=== PATIENT | female | born 1995 | race African-American/Black ===

== ENCOUNTER 2017-05-22 08:45 | Emergency (ER) | payer SELFPAY ==
[2017-05-22 09:43] LABS: Bilirubin Negative (Negative); Blood, Urine Negative (Negative); Glucose, Urine (Dipstick) Negative (Negative); Ketone, Urine Negative (Negative); Nitrite Negative (Negative); Protein, Urine (Dipstick) Negative (Neg-Trace); Urobilinogen 0.2 mg/dL (0.2-1.0)
[2017-05-22 09:53] LABS: #Eosinphils 0.1 thou/uL (0.0-0.7); #Lymphocytes 1.9 thou/uL (1.20-3.40); #Monocytes 0.5 thou/uL (0.11-0.59); #Neutrophils 2.9 thou/uL (1.40-6.50); %Basophils 0.3 % (0.0-1.0); %Eosinophils 1.5 % (0.0-10.0); %Lymphocytes 36.1 % (21.0-51.0); %Monocytes 8.8 % (0.0-10.0); Hematocrit 42.1 % (36.0-47.0); Mean Platelet Volume 6.9 fL (7.4-10.4); Red Blood Cell (RBC) Count 4.73 mill/uL (4.20-5.40); White Blood Cell (WBC) Count 5.4 thou/uL (4.8-10.8)
[2017-05-22 10:16] LABS: ALT (SGPT) 12 U/L (8-55); AST (SGOT) 13 U/L (5-34); Alkaline Phosphatase 100 U/L (40-150); Anion Gap 13 mmol/L (10-20); BUN (Urea Nitrogen) 12 mg/dL (7.0-18.7); Bilirubin, Total 0.3 mg/dL (0.2-1.2); Calc. Creatinine Clearance 0 mL/min (70-130); Calcium 9.9 mg/dL (7.8-10.44); Carbon Dioxide 26 mmol/L (22-29); Chloride 104 mmol/L (98-107); Estimated GFR-MDRD Greater than 90; Globulin 3.3 g/dL (2.4-3.5); Lipase 23 U/L (8-78); Protein, Total 7.5 g/dL (6.0-8.3)
== END 2017-05-22 11:20 | disposition home or self-care (01) ==
LOC: ERS 08:45
DX: R10.30 Lower abdominal pain, unspecified (principal); F31.9 Bipolar disorder, unspecified; F90.9 Attention-deficit hyperactivity disorder, unspecified type; F41.9 Anxiety disorder, unspecified
CPT/HCPCS: 36415; 80053; 81003; 81025; 83690; 85025; 99284

== ENCOUNTER 2017-07-17 05:42 | Emergency (ER) | payer SELFPAY ==
[2017-07-17 06:43] LABS: Bilirubin Negative (Negative); Blood, Urine Negative (Negative); Glucose, Urine (Dipstick) Negative (Negative); Ketone, Urine Negative (Negative); Nitrite Negative (Negative); Protein, Urine (Dipstick) Negative (Neg-Trace); Urobilinogen 0.2 mg/dL (0.2-1.0)
== END 2017-07-17 07:08 | disposition home or self-care (01) ==
LOC: ERS 05:42
DX: M54.9 Dorsalgia, unspecified (principal); F31.9 Bipolar disorder, unspecified; F41.9 Anxiety disorder, unspecified; F90.9 Attention-deficit hyperactivity disorder, unspecified type
CPT/HCPCS: 81003; 81025; 99283

== ENCOUNTER 2017-11-05 10:54 | Emergency (ER) | payer MEDICAID, SELFPAY ==
[2017-11-05] MEDS ORDERED: Ondansetron ODT 4 MG TAB ONE (11:22)
[2017-11-05 11:29] LABS: Bilirubin Negative (Negative); Blood, Urine Negative (Negative); Clarity CLOUDY (Clear); Glucose, Urine (Dipstick) Negative (Negative); Leukocyte Negative (Negative); Nitrite Negative (Negative); Protein, Urine (Dipstick) Trace mg/dL (Neg-Trace); Specific Gravity, Urine 1.026 (1.002-1.036); pH, Urine 6.5 (5.0-9.0)
[2017-11-05 12:14] LABS: Pregnancy Test - Urine (BHCG) POSITIVE (Negative); Pregu Control Background? CLEAR/WHITE (CLR/WHITE); Pregu Control Bar Appear? YES (CONTROL BAR); Specific Gravity 1.026 (1.002-1.036)
--- NOTE | 2017-11-05 13:32 | ULT ---
PELVIC ULTRASOUND WITH DOPPLER: HISTORY: Evaluate for ectopic. Ovarian cysts. Positive hCG. COMPARISON: Pelvic ultrasound from 2017. FINDINGS: The endometrium is thickened at 1.4 cm. The uterus measures 8.8 x 4.5 x 5.6 cm. There is adequate flow to both ovaries. The right ovary measures 2.9 x 1.8 x 2 cm. The left ovary m easures 2.2 x 2 x 1.5 cm. IMPRESSION: Abnormally thickened endometrium, measuring up to 1.4 cm. If the patient is truly , this is a of unknown location. This could be due to lissy y . No ectopic is seen on this exam. Follow-up hCG trend and ultrasound are recommended. POS: SABINE
[2017-11-06 22:48] LABS: Chlamydia by PCR Not Detected (NotDetected); GC by PCR Not Detected (NotDetected)
== END 2017-11-05 14:07 | disposition home or self-care (01) ==
LOC: ERS 10:54
DX: O99.89 Other specified diseases and conditions complicating pregnancy, childbirth and the puerperium (principal); R10.9 Unspecified abdominal pain; F41.9 Anxiety disorder, unspecified; F31.9 Bipolar disorder, unspecified; F90.9 Attention-deficit hyperactivity disorder, unspecified type
CPT/HCPCS: 36415; 76856; 81003; 81025; 84702; 86900; 86901; 87480; 87491; 87510; 87591; 87660; 93976; Q0162

== ENCOUNTER 2017-11-15 04:52 | Emergency (ER) | payer SELFPAY | END 2017-11-15 06:14 | disposition home or self-care (01) | LOC: ERS 04:52 | DX: O99.89 Other specified diseases and conditions complicating pregnancy, childbirth and the puerperium (principal); R21 Rash and other nonspecific skin eruption; H92.02 Otalgia, left ear; O99.341 Other mental disorders complicating pregnancy, first trimester; F31.9 Bipolar disorder, unspecified; F41.9 Anxiety disorder, unspecified; F90.9 Attention-deficit hyperactivity disorder, unspecified type | CPT/HCPCS: 99282 ==

== ENCOUNTER 2017-12-11 19:44 | Emergency (ER) | payer MEDICAID ==
[2017-12-11 20:12] LABS: #Lymphocytes 2.4 thou/uL (1.20-3.40); #Monocytes 0.8 thou/uL (0.11-0.59); #Neutrophils 9.2 thou/uL (1.40-6.50); %Basophils 0.1 % (0.0-1.0); %Eosinophils 0.4 % (0.0-10.0); %Lymphocytes 19.5 % (21.0-51.0); %Monocytes 6.8 % (0.0-10.0); %Neutrophils 73.3 % (42.0-75.0); Hemoglobin 13.1 g/dL (12.0-16.0); Mean Corpuscular HGB CONC 35.6 g/dL (32.0-36.0); Mean Corpuscular Hemoglobin 30.4 pg (27.0-31.0); Mean Corpuscular Volume 85.6 fl (81.0-99.0); Mean Platelet Volume 6.9 fL (7.4-10.4); Platelet Count 333 thou/uL (130-400); RBC Distribution Width 11.2 % (11.5-14.5); Red Blood Cell (RBC) Count 4.31 mill/uL (4.20-5.40); White Blood Cell (WBC) Count 12.5 thou/uL (4.8-10.8)
[2017-12-11 20:31] LABS: Bilirubin Negative (Negative); Blood, Urine Negative (Negative); Clarity CLOUDY (Clear); Glucose, Urine (Dipstick) Negative (Negative); Leukocyte Small (Negative); Nitrite Negative (Negative); Protein, Urine (Dipstick) 30 mg/dL (Neg-Trace); Specific Gravity, Urine 1.035 (1.002-1.036); pH, Urine 6.5 (5.0-9.0)
[2017-12-11 20:33] LABS: Bacteria/HPF Rare-Few HPF (None Seen); Hyaline Casts/LPF 7-10 HYALINE CAST LPF (0-3 Hyaline); Pathc Cast-AUWi Flag 2.18 (0-2.49); Squamous Epithelial 21-50 HPF (0-3)
[2017-12-11 20:35] LABS: RBC/HPF 0-3 HPF (0-3)
[2017-12-11] MEDS ORDERED: Acetaminophen 500 MG TAB ONE (21:14)
[2017-12-11] MEDS ORDERED: cefTRIAXone\\ROCEPHIN 1 GM, Syringe 0.4 ML in Sterile Water 9.6 ML SLOW IVP SCH (21:30)
--- NOTE | 2017-12-11 21:38 | ULT ---
TRANSABDOMINAL AND TRANSVAGINAL PELVIC ULTRASOUND 12/11/17 INDICATION: Pelvic pain. COMPARISON: Prior exam dated 11/05/17. TECHNIQUE: Lucas scale, color doppler, M-mode doppler and vascular duplex with spectral analysis performed as wel l as the transabdominal and transvaginal approach. FINDINGS: A single live intrauterine gestation with crown-rump length of 2.98 cm and a gestational sac size of 4.32 cm giving an estimated gestational age by ultrasound of 9 weeks, 6 day with estimated due date o f 07/10/18. This corresponds to LMP data with a clinical age of 9 weeks and 2 days with estimated due date of 07/14/18. Yolk sac is identified measuring 5.6 mm. The heart rate measures 178 beats per minute. There is a small subchorionic hemorrhage seen along the inferior aspect of the gestational sac occupy ing less than 25% of the circumference of the gestational sac. The visualized right and left ovary are normal appearing. The right ovary measured 4.2 x 5.2 x 1.2 cm . Left ovary measures 2.3 x 1.98 cm. The uterus measures 123 x 7.1 x 8.3 cm. No free fluid is evident . IMPRESSION: 1. Single live intrauterine gestation. 2. Small subchorionic hemorrhage seen along the inferior aspect of the gestational sac. Continue d followup is recommended. POS: SABINE
[2017-12-11] MEDS ORDERED: cefTRIAXone\\ROCEPHIN 1 GM VIAL IM SCH (21:45)
[2017-12-11] MEDS ORDERED: Lidocaine 1% PF 5 ML VIAL ONE (21:50)
== END 2017-12-11 22:15 | disposition home or self-care (01) ==
LOC: ERS 19:44
DX: O20.0 Threatened abortion (principal); O23.41 Unspecified infection of urinary tract in pregnancy, first trimester; O99.341 Other mental disorders complicating pregnancy, first trimester; F31.9 Bipolar disorder, unspecified; F41.9 Anxiety disorder, unspecified; F90.9 Attention-deficit hyperactivity disorder, unspecified type; Z3A.09 9 weeks gestation of pregnancy
CPT/HCPCS: 36415; 76856; 81003; 81015; 84702; 85025; 86900; 86901; 96372; A4216; J0696; J2001

== ENCOUNTER 2017-12-17 18:16 | Emergency (ER) | payer MEDICAID ==
[2017-12-17 18:50] LABS: #Lymphocytes 2.6 thou/uL (1.20-3.40); #Monocytes 0.7 thou/uL (0.11-0.59); #Neutrophils 7.7 thou/uL (1.40-6.50); %Basophils 0.1 % (0.0-1.0); %Eosinophils 0.4 % (0.0-10.0); %Lymphocytes 23.1 % (21.0-51.0); %Monocytes 6.7 % (0.0-10.0); %Neutrophils 69.6 % (42.0-75.0); Hemoglobin 11.7 g/dL (12.0-16.0); Mean Corpuscular HGB CONC 35.7 g/dL (32.0-36.0); Mean Corpuscular Hemoglobin 30.7 pg (27.0-31.0); Mean Platelet Volume 6.8 fL (7.4-10.4); Platelet Count 318 thou/uL (130-400); RBC Distribution Width 11.3 % (11.5-14.5); White Blood Cell (WBC) Count 11.1 thou/uL (4.8-10.8)
[2017-12-17 18:51] LABS: Bilirubin Negative (Negative); Blood, Urine Negative (Negative); Clarity CLEAR (Clear); Glucose, Urine (Dipstick) Negative (Negative); Leukocyte Negative (Negative); Nitrite Negative (Negative); Protein, Urine (Dipstick) Negative (Neg-Trace); pH, Urine 7.5 (5.0-9.0)
[2017-12-17 18:53] LABS: Specific Gravity, Urine 1.005 (1.002-1.036)
[2017-12-17 19:13] LABS: ALT (SGPT) 12 U/L (8-55); AST (SGOT) 10 U/L (5-34); Albumin 3.9 g/dL (3.5-5.0); Alkaline Phosphatase 57 U/L (40-150); Anion Gap 10 mmol/L (10-20); BUN (Urea Nitrogen) 5 mg/dL (7.0-18.7); Bilirubin, Total 0.3 mg/dL (0.2-1.2); Calc. Creatinine Clearance 0 mL/min (70-130); Calcium 9.2 mg/dL (7.8-10.44); Carbon Dioxide 23 mmol/L (22-29); Chloride 107 mmol/L (98-107); Estimated GFR-MDRD Greater than 90; Globulin 2.7 g/dL (2.4-3.5); Glucose 95 mg/dL (70-105); Potassium 3.4 mmol/L (3.5-5.1); Protein, Total 6.6 g/dL (6.0-8.3); Sodium 137 mmol/L (136-145)
== END 2017-12-17 20:32 | disposition home or self-care (01) ==
LOC: ERS 18:16
DX: O99.89 Other specified diseases and conditions complicating pregnancy, childbirth and the puerperium (principal); R10.9 Unspecified abdominal pain; O99.341 Other mental disorders complicating pregnancy, first trimester; F41.9 Anxiety disorder, unspecified; F31.9 Bipolar disorder, unspecified; F90.9 Attention-deficit hyperactivity disorder, unspecified type; Z3A.10 10 weeks gestation of pregnancy
CPT/HCPCS: 36415; 80053; 81003; 84702; 85025

== ENCOUNTER 2017-12-23 04:58 | Emergency (ER) | payer MEDICAID ==
[2017-12-23] MEDS ORDERED: Acetaminophen 500 MG TAB ONE (06:41)
[2017-12-23 06:42] LABS: #Basophils 0.1 thou/uL (0.0-0.2); #Lymphocytes 1.7 thou/uL (1.20-3.40); #Monocytes 0.9 thou/uL (0.11-0.59); %Basophils 0.6 % (0.0-1.0); %Eosinophils 0.2 % (0.0-10.0); %Lymphocytes 19.8 % (21.0-51.0); %Monocytes 9.9 % (0.0-10.0); %Neutrophils 69.5 % (42.0-75.0); Hemoglobin 12.8 g/dL (12.0-16.0); Mean Corpuscular HGB CONC 35.9 g/dL (32.0-36.0); Mean Corpuscular Hemoglobin 30.6 pg (27.0-31.0); Mean Corpuscular Volume 85.2 fl (81.0-99.0); Mean Platelet Volume 6.7 fL (7.4-10.4); Platelet Count 344 thou/uL (130-400); RBC Distribution Width 11.3 % (11.5-14.5); Red Blood Cell (RBC) Count 4.19 mill/uL (4.20-5.40); White Blood Cell (WBC) Count 8.6 thou/uL (4.8-10.8)
[2017-12-23 07:21] LABS: Bilirubin Negative (Negative); Blood, Urine Negative (Negative); Clarity CLEAR (Clear); Glucose, Urine (Dipstick) Negative (Negative); Leukocyte Negative (Negative); Nitrite Negative (Negative); Protein, Urine (Dipstick) 30 mg/dL (Neg-Trace); Specific Gravity, Urine 1.036 (1.002-1.036)
[2017-12-23 07:24] LABS: Bacteria/HPF None Seen HPF (None Seen); RBC/HPF 0-3 HPF (0-3); WBC/HPF 0-3 HPF (0-3)
[2017-12-23 07:29] LABS: Pathc Cast-AUWi Flag 4.36 (0-2.49)
[2017-12-23 07:30] LABS: Pregnancy Test - Urine (BHCG) POSITIVE (Negative); Specific Gravity 1.036 (1.002-1.036)
[2017-12-23 07:31] LABS: Pregu Control Background? CLEAR/WHITE (CLR/WHITE); Pregu Control Bar Appear? YES (CONTROL BAR)
[2017-12-23 07:56] LABS: Crystals/HPF None Seen HPF (Negative); Hyaline Casts/LPF NONE SEEN LPF (0-3 Hyaline); Other Casts/LPF None Seen LPF (0-3 Hyaline); Renal Epithelial None Seen HPF (0-3); Transitional Epithelial NONE SEEN HPF (0-3)
[2017-12-24 01:20] LABS: Chlamydia by PCR Not Detected (NotDetected); GC by PCR Not Detected (NotDetected)
== END 2017-12-23 08:50 | disposition home or self-care (01) ==
LOC: ERS 04:58
DX: O20.9 Hemorrhage in early pregnancy, unspecified (principal); O99.341 Other mental disorders complicating pregnancy, first trimester; F90.9 Attention-deficit hyperactivity disorder, unspecified type; F31.9 Bipolar disorder, unspecified; F41.9 Anxiety disorder, unspecified; Z3A.11 11 weeks gestation of pregnancy
CPT/HCPCS: 36415; 51701; 81003; 81015; 81025; 84702; 85025; 86900; 86901; 87480; 87491; 87510; 87591; 87660; 96360; A4353

== ENCOUNTER 2018-01-15 15:24 | Emergency (ER) | payer MEDICAID, OTHER | END 2018-01-15 16:19 | disposition home or self-care (01) | LOC: ERS 15:24 | DX: H60.92 Unspecified otitis externa, left ear (principal); F31.9 Bipolar disorder, unspecified; F41.9 Anxiety disorder, unspecified; F90.9 Attention-deficit hyperactivity disorder, unspecified type | CPT/HCPCS: 99282 ==

== ENCOUNTER 2018-02-01 13:32 | Emergency (ER) | payer OTHER ==
[2018-02-01 13:54] LABS: #Eosinphils 0.1 thou/uL (0.0-0.7); #Lymphocytes 2.3 thou/uL (1.20-3.40); #Monocytes 0.7 thou/uL (0.11-0.59); #Neutrophils 6.9 thou/uL (1.40-6.50); %Basophils 0.3 % (0.0-1.0); %Eosinophils 1.2 % (0.0-10.0); %Lymphocytes 22.9 % (21.0-51.0); %Monocytes 6.9 % (0.0-10.0); %Neutrophils 68.8 % (42.0-75.0); Mean Corpuscular HGB CONC 34.5 g/dL (32.0-36.0); Mean Corpuscular Volume 86.9 fl (81.0-99.0); Mean Platelet Volume 6.9 fL (7.4-10.4); Platelet Count 306 thou/uL (130-400); RBC Distribution Width 12.3 % (11.5-14.5); Red Blood Cell (RBC) Count 3.99 mill/uL (4.20-5.40)
[2018-02-01 14:14] LABS: ALT (SGPT) 9 U/L (8-55); AST (SGOT) 12 U/L (5-34); Albumin 3.7 g/dL (3.5-5.0); Alkaline Phosphatase 57 U/L (40-150); Anion Gap 11 mmol/L (10-20); BUN (Urea Nitrogen) 7 mg/dL (7.0-18.7); Bilirubin, Total 0.4 mg/dL (0.2-1.2); Calc. Creatinine Clearance 0 mL/min (70-130); Calcium 9.5 mg/dL (7.8-10.44); Carbon Dioxide 21 mmol/L (22-29); Chloride 107 mmol/L (98-107); Estimated GFR-MDRD Greater than 90; Globulin 3.3 g/dL (2.4-3.5); Glucose 89 mg/dL (70-105); Potassium 4.1 mmol/L (3.5-5.1); Sodium 135 mmol/L (136-145)
[2018-02-01 14:54] LABS: Bilirubin Negative (Negative); Blood, Urine Negative (Negative); Clarity CLEAR (Clear); Glucose, Urine (Dipstick) Negative (Negative); Leukocyte Trace (Negative); Nitrite Negative (Negative); Protein, Urine (Dipstick) 30 mg/dL (Neg-Trace); Specific Gravity, Urine 1.024 (1.002-1.036)
[2018-02-01 14:56] LABS: Bacteria/HPF Rare-Few HPF (None Seen); Hyaline Casts/LPF 0-3 HYALINE CAST LPF (0-3 Hyaline); Pathc Cast-AUWi Flag 0.58 (0-2.49); WBC/HPF 0-3 HPF (0-3)
[2018-02-01 15:01] LABS: RBC/HPF 0-3 HPF (0-3)
== END 2018-02-01 15:34 | disposition home or self-care (01) ==
LOC: ERS 13:32
DX: O99.89 Other specified diseases and conditions complicating pregnancy, childbirth and the puerperium (principal); R55 Syncope and collapse; Z3A.17 17 weeks gestation of pregnancy; F31.9 Bipolar disorder, unspecified; F41.9 Anxiety disorder, unspecified; Z79.899 Other long term (current) drug therapy
CPT/HCPCS: 36415; 80053; 81003; 81015; 85025; 93005

== ENCOUNTER 2018-02-07 18:39 | Emergency (ER) | payer OTHER ==
[2018-02-07 19:04] LABS: Bilirubin Negative (Negative); Blood, Urine Negative (Negative); Clarity CLEAR (Clear); Glucose, Urine (Dipstick) Negative (Negative); Leukocyte Small (Negative); Nitrite Negative (Negative); Protein, Urine (Dipstick) Negative (Neg-Trace); Specific Gravity, Urine 1.017 (1.002-1.036); pH, Urine 7.5 (5.0-9.0)
[2018-02-07 19:06] LABS: Bacteria/HPF None Seen HPF (None Seen); Hyaline Casts/LPF 0-3 HYALINE CAST LPF (0-3 Hyaline); Pathc Cast-AUWi Flag 0.43 (0-2.49); RBC/HPF 0-3 HPF (0-3); Squamous Epithelial 0-3 HPF (0-3); WBC/HPF 0-3 HPF (0-3)
[2018-02-07 19:42] LABS: #Eosinphils 0.1 thou/uL (0.0-0.7); #Lymphocytes 2.7 thou/uL (1.20-3.40); #Monocytes 0.7 thou/uL (0.11-0.59); #Neutrophils 6.2 thou/uL (1.40-6.50); %Lymphocytes 27.8 % (21.0-51.0); %Monocytes 7.6 % (0.0-10.0); %Neutrophils 63.5 % (42.0-75.0); Hemoglobin 10.9 g/dL (12.0-16.0); Mean Corpuscular HGB CONC 35.8 g/dL (32.0-36.0); Mean Corpuscular Hemoglobin 30.7 pg (27.0-31.0); Mean Corpuscular Volume 85.6 fl (81.0-99.0); Platelet Count 259 thou/uL (130-400); RBC Distribution Width 12.1 % (11.5-14.5); Red Blood Cell (RBC) Count 3.55 mill/uL (4.20-5.40); White Blood Cell (WBC) Count 9.7 thou/uL (4.8-10.8)
--- NOTE | 2018-02-07 20:02 | ULT ---
OB ULTRASOUND: 02/07/18 HISTORY: Intrauterine with pelvic pain. Ultrasound reveals a viable intrauterine gestation. Gestational age by ultrasound measurement is cons istent with 17 week, 5 day gestation. The biometry measurements are consistent. heart rate recorded at 162 beats per minute. Placenta: Posterior. Amniotic fluid: Within normal range. No evidence of placenta previa or abruption. Intracranial contents appear unremarkable. anatomy was not evaluated on this study. IMPRESSION: 17 week, 5 day gestation by ultrasound. No abnormality identified. POS: SABINE
== END 2018-02-07 20:21 | disposition home or self-care (01) ==
LOC: ERS 18:39
DX: O20.0 Threatened abortion (principal); O99.342 Other mental disorders complicating pregnancy, second trimester; F31.9 Bipolar disorder, unspecified; Z3A.18 18 weeks gestation of pregnancy; Z79.899 Other long term (current) drug therapy
CPT/HCPCS: 36415; 76805; 81003; 81015; 84702; 85025; 86900; 86901

== ENCOUNTER 2018-02-10 12:32 | Emergency (ER) | payer OTHER ==
[2018-02-10 13:22] LABS: #Eosinphils 0.1 thou/uL (0.0-0.7); #Lymphocytes 2.2 thou/uL (1.20-3.40); #Monocytes 0.6 thou/uL (0.11-0.59); #Neutrophils 6.2 thou/uL (1.40-6.50); %Basophils 0.5 % (0.0-1.0); %Eosinophils 0.6 % (0.0-10.0); %Lymphocytes 24.2 % (21.0-51.0); %Monocytes 6.3 % (0.0-10.0); %Neutrophils 68.4 % (42.0-75.0); Hemoglobin 12.3 g/dL (12.0-16.0); Mean Corpuscular Hemoglobin 31.3 pg (27.0-31.0); Mean Platelet Volume 6.8 fL (7.4-10.4); Platelet Count 304 thou/uL (130-400); RBC Distribution Width 12.4 % (11.5-14.5); Red Blood Cell (RBC) Count 3.93 mill/uL (4.20-5.40)
[2018-02-10 13:40] LABS: Acetaminophen Less than 6.0 mcg/mL (10.0-30.0); Alcohol Less than 10 mg/dL (Less than 10); Salicylate Less than 8.0 mg/dL (15.0-30.0)
[2018-02-10 13:43] LABS: Alcohol Less than 10 mg/dL (Less than 10); Anion Gap 15 mmol/L (10-20); BUN (Urea Nitrogen) 7 mg/dL (7.0-18.7); Calc. Creatinine Clearance 0 mL/min (70-130); Calcium 9.6 mg/dL (7.8-10.44); Carbon Dioxide 19 mmol/L (22-29); Chloride 104 mmol/L (98-107); Estimated GFR-MDRD Greater than 90; Glucose 81 mg/dL (70-105); Potassium 3.8 mmol/L (3.5-5.1); Sodium 134 mmol/L (136-145)
[2018-02-10 14:12] LABS: Bilirubin Negative (Negative); Blood, Urine Negative (Negative); Clarity TURBID (Clear); Glucose, Urine (Dipstick) Negative (Negative); Leukocyte Large (Negative); Nitrite Negative (Negative); Protein, Urine (Dipstick) 30 mg/dL (Neg-Trace); Specific Gravity, Urine 1.029 (1.002-1.036)
[2018-02-10 14:14] LABS: Bacteria/HPF 1+ HPF (None Seen); Squamous Epithelial 21-50 HPF (0-3)
[2018-02-10 14:17] LABS: Pathc Cast-AUWi Flag 5.08 (0-2.49)
[2018-02-10 14:22] LABS: Amphetamine Not Detected (NotDetected); Barbiturates Screen Not Detected (NotDetected); Benzodiazepine Screen Not Detected (NotDetected); Cocaine Metabolite Screen Not Detected (NotDetected); Medtox Reader # READER 1; Methadone Not Detected (NotDetected); Methamphetamine Not Detected (NotDetected); Opiate Screen Not Detected (NotDetected); Oxycodone Screen Not Detected (NotDetected); Phencyclidine (PCP) Not Detected (NotDetected); THC/Cannabinoid Screen Not Detected (NotDetected); Tricyclic Screen Not Detected (NotDetected)
[2018-02-10 14:23] LABS: Medtox Control Line Valid? VALID (VALID)
[2018-02-10 14:25] LABS: Hyaline Casts/LPF NONE SEEN LPF (0-3 Hyaline); Other Casts/LPF None Seen LPF (0-3 Hyaline)
[2018-02-10] MEDS ORDERED: Acetaminophen 325 MG Suppository ONE (18:59)
[2018-02-10] MEDS ORDERED: Acetaminophen 325 MG TAB ONE (19:00)
== END 2018-02-10 20:30 | disposition home or self-care (01) ==
LOC: ERS 12:32
DX: O23.42 Unspecified infection of urinary tract in pregnancy, second trimester (principal); O99.342 Other mental disorders complicating pregnancy, second trimester; F41.9 Anxiety disorder, unspecified; F90.9 Attention-deficit hyperactivity disorder, unspecified type; F31.9 Bipolar disorder, unspecified; Z3A.14 14 weeks gestation of pregnancy
CPT/HCPCS: 36415; 80048; 80306; 80307; 81003; 81015; 84443; 85025; 87086

== ENCOUNTER 2018-02-14 13:39 | Outpatient (CLI) | payer OTHER | END 2018-02-14 13:40 | disposition home or self-care (01) | LOC: BICULT 13:39 | PROVIDERS: ATTEND Family Medicine | DX: Z34.82 Encounter for supervision of other normal pregnancy, second trimester (principal); Z3A.19 19 weeks gestation of pregnancy | CPT/HCPCS: 76805 ==

== ENCOUNTER 2018-03-02 07:52 | Emergency (ER) | payer OTHER | END 2018-03-02 08:50 | disposition home or self-care (01) | LOC: ERS 07:52 | DX: O99.89 Other specified diseases and conditions complicating pregnancy, childbirth and the puerperium (principal); H60.92 Unspecified otitis externa, left ear; O99.342 Other mental disorders complicating pregnancy, second trimester; F41.9 Anxiety disorder, unspecified; F31.9 Bipolar disorder, unspecified; F90.9 Attention-deficit hyperactivity disorder, unspecified type; Z3A.21 21 weeks gestation of pregnancy ==

== ENCOUNTER 2018-03-02 18:45 | Emergency (ER) | payer OTHER ==
[2018-03-02] MEDS ORDERED: Ciprofloxacin HCL/Dexameth Otic Drops 7.5 ml Bottle ONE (19:18)
== END 2018-03-02 19:30 | disposition home or self-care (01) ==
LOC: ERS 18:45
DX: O99.89 Other specified diseases and conditions complicating pregnancy, childbirth and the puerperium (principal); H60.92 Unspecified otitis externa, left ear; O99.342 Other mental disorders complicating pregnancy, second trimester; F31.9 Bipolar disorder, unspecified; F41.9 Anxiety disorder, unspecified; F90.9 Attention-deficit hyperactivity disorder, unspecified type; Z3A.21 21 weeks gestation of pregnancy
CPT/HCPCS: 99282

== ENCOUNTER 2018-03-04 04:52 | Day surgery (SDC) | payer OTHER ==
[2018-03-04 05:32] VITALS: BP 114/60; TEMP 99.8; BMI 29.5
[2018-03-04] MEDS ORDERED: Acetaminophen 500 MG TAB PO SCH (05:45)
[2018-03-04] MEDS ORDERED: Ibuprofen 600 MG TAB PO SCH (05:45)
[2018-03-04] MEDS ORDERED: cefTRIAXone\\ROCEPHIN 1 GM VIAL IM SCH (06:15)
[2018-03-04] MEDS ORDERED: Lidocaine 1% (PF) 30 ML VIAL SC SCH (06:15)
--- NOTE | 2018-03-04 07:04 | PRG ---
DATE OF SERVICE: 03/04/2018 PRIMARY OB: Dr. Janeth Aviles. CHIEF COMPLAINT: Pelvic pain and ear pain. HISTORY OF PRESENT ILLNESS: The patient is a 22-year-old G2, P1 female with an intrauterine pregnanc y at 21 weeks who is presenting with lower pelvic pain that she has been experiencing since about 1:0 0 this morning. She reports that the pain is more dull as worse with activity and movement, feels on her right side and lower pelvis. She denies any bleeding or leaking fluid. The patient denies any back pain. She reports that she has been having this ear pain off and on since November and has been on multiple medications. Most recently, she reports seeing the ER doctors or the ER physician's 3 time s over the weekend in an effort to get her this year treated. Most recently, they placed a wick in h er ear which has come out. The patient denies fever at home. She reports 3 bottles of medicine. Lo oking through the ER physician's notes, it appears that she is on a fluoroquinolone ear drop with juan manuel roids. The patient denies fever, chest pain, shortness of breath. She has had some nausea and vomit ing in the last 2 days. She is not sure if it is related to or to her pain. Denies diarrh ea or constipation. Denies any skin rashes. Denies any vaginal bleeding or leakage of fluid. Denie s urinary urgency or frequency. Denies lower extremity pain or weakness. She does report a history of vaginal bleeding, resolved, some dizziness with syncope, resolved over a month ago. PAST MEDICAL HISTORY: Recurrent otitis externa and ovarian cysts. PAST SURGICAL HISTORY: She has had adenoids and tonsils removed. She has also had surgery on her ri t hand. Reviewing previous notes, she has a history of anxiety, bipolar disorder, depression, ADHD and a history of suicide attempt by overdose in 2008. SOCIAL HISTORY: Denies drug, alcohol or tobacco use. ALLERGIES: AMOXICILLIN/PENICILLIN. She reports tingling and swelling. CURRENT MEDICATIONS: vitamins. She has been prescribed ofloxacin ear drops and ciprofloxac in eardrops. OB LABORATORY DATA: RPR is nonreactive, GC and chlamydia are negative, hepatitis B surface antigen n onreactive, HIV nonreactive and she is rubella immune. Drug screen is negative back in January. REVIEW OF SYSTEMS: Per HPI. PHYSICAL EXAMINATION: VITAL SIGNS: Blood pressure is 114/60, heart rate of 93, satting 98% on room air, temperature 99.3. GENERAL: She appears to be very uncomfortable with a washcloth on her ear and initially very drowsy. Throughout the exam, the patient was cooperative, alert and oriented. HEENT: Head appears normocephalic, atraumatic. Ear was not examined due to the pain and recent eval uations in the emergency room. Reviewing the documentation, confirms diagnosis of otitis externa. LUNGS: Clear to auscultation bilaterally. HEART: Has a regular rate and rhythm. ABDOMEN: Soft, gravid. She does have some tenderness with deviation of the uterus to the patient's left, there on the right side. EXTREMITIES: Nontender, nonedematous. Heart tones are dopplered in the 150s. Tocometer does not show any contractions, nor did the patient have any indication of contractions during the 20 minutes I was in there. ASSESSMENT AND PLAN: The patient is a 22-year-old G2, P1 female with an intrauterine at 21 weeks with confirmed heart tones. There is no evidence of labor. Her pelvic pain seems consi stent with ligamentous or musculoskeletal pains. Concerned about her recurrent ear infection that se ems to be an otitis externa and to the point where she cannot hear out of the ear, where they have at tempted to place a wick, which has fallen out. There is some concern that the medication is not able to penetrate due to the increase amount of swelling. I have given the patient 1 gram of Tylenol and 600 mg of ibuprofen. I have also given the patient 1 gram of Rocephin IM and a prescription for Kef francie to be taken 3 times a day for the next 14 days or until she sees Dr. Aviles who may give a differ ent treatment course The patient is to continue her ear drops again until she sees Dr. Aviles where s he can get definitive management plan. The patient has been counseled. She can take ibuprofen 2-3 t ablets 3 times a day for the next week or so while she is trying to get through this and afterwards t o discontinue ibuprofen use. The patient has been encouraged to call Dr. Aviles's office this shakira trimble and tried again to be seen. Otherwise, she has an appointment on Sunday.
== END 2018-03-04 07:33 ==
LOC: L&D/OP 04:52
PROVIDERS: ATTEND Family Medicine
DX: O99.89 Other specified diseases and conditions complicating pregnancy, childbirth and the puerperium (principal); R10.2 Pelvic and perineal pain; H92.09 Otalgia, unspecified ear; Z88.0 Allergy status to penicillin; Z3A.21 21 weeks gestation of pregnancy
CPT/HCPCS: 96372; 99283; J0696; J2001

== ENCOUNTER 2018-03-24 16:29 | Day surgery (SDC) | payer OTHER ==
[2018-03-24 16:57] VITALS: BMI 34.5
[2018-03-24 17:00] VITALS: BP 111/76; TEMP 98.9
[2018-03-24 18:39] LABS: Bilirubin Negative (Negative); Blood, Urine Negative (Negative); Clarity CLOUDY (Clear); Glucose, Urine (Dipstick) Negative (Negative); Leukocyte Small (Negative); Nitrite Negative (Negative); Protein, Urine (Dipstick) Trace mg/dL (Neg-Trace); Specific Gravity, Urine 1.028 (1.002-1.036)
[2018-03-24 18:43] LABS: Bacteria/HPF 1+ HPF (None Seen); Squamous Epithelial 21-50 HPF (0-3); WBC/HPF 21-50 HPF (0-3)
[2018-03-24 18:46] LABS: Pathc Cast-AUWi Flag 3.34 (0-2.49); Yeast-AUWi Flag 51.3 (0-25.0)
[2018-03-24 18:56] LABS: Hyaline Casts/LPF 0-3 HYALINE CAST LPF (0-3 Hyaline); Other Casts/LPF None Seen LPF (0-3 Hyaline)
[2018-03-24 18:57] LABS: RBC/HPF 0-3 HPF (0-3); Yeast-All Forms None Seen HPF (None Seen)
--- NOTE | 2018-03-25 00:51 | PRG ---
DATE OF ENCOUNTER: 03/24/2018 OB ER ENCOUNTER PRIMARY OB: Dr. Janeth Aviles. CHIEF COMPLAINT: Pelvic pain. HISTORY OF PRESENT ILLNESS: Patient is a 22-year-old G2, P1 female with an intrauterine at 24 weeks and 2 days who is presenting to Labor and Delivery with increased pelvic pain and pressure. Patient reports that she has been having this pain off and on for some time now, but was severe enough that it was waking her up and bad enough that when she went to go to work today that she could not stay and had to leave because of the pain. Patient reports that the pain is mainly in her pubic bone. It is worse with activity and movement. She also reports that she has been feeling what she believes were contractions and is just worried that does want to make sure that her baby safe. Patient denies any fever, fall, headache, chest pain, shortness of breath, nausea, vomiting, diarrhea, constipation. She denies any skin rashes, hip problems, knee problems, muscle weakness, vaginal bleeding, leakage of fluid, or urinary urgency or frequency. PAST MEDICAL HISTORY: Significant for ovarian cysts and recurrent otitis externa, frequent UTIs, reported placenta previa with this , asthma as a child. Reports history of depression, schizophrenia, bipolar disorder, and drug abuse. PAST SURGICAL HISTORY: Tonsils and adenoids were removed. She has had surgery on her right hand. SOCIAL HISTORY: Patient has a history of suicide attempt by overdose in 2008, history of drug abuse. SOCIAL HISTORY: Denies current drug, alcohol, or tobacco use. ALLERGIES: AMOXICILLIN reports tingling and swelling. CURRENT MEDICATIONS: vitamins. OB LABORATORY DATA: RPR is nonreactive, GC and chlamydia are negative, hepatitis B surface antigen nonreactive, HIV nonreactive. She is rubella immune and a drug screen was negative back in January. REVIEW OF SYSTEMS: Per HPI. PHYSICAL EXAMINATION: VITAL SIGNS: Blood pressure 114/60, heart rate of 93, respiratory rate of 18, satting 98% on room air, temperature 98.2. GENERAL: She appears to be in no acute distress. She is alert and oriented, cooperative, and pleasant to interact with. HEENT: Normocephalic, atraumatic. LUNGS: Clear to auscultation bilaterally. HEART: Regular rate and rhythm. ABDOMEN: Soft and nontender. She does have tenderness at her pubic bone to palpation. EXTREMITIES: Nontender, nonedematous. Vulva is without masses, lesions, or erythema. Vagina is moist. Node of minimal discharge. Cervix is firm and closed. Performed for abdominal pain in at 24 weeks. Baseline is noted to be in the 140s with moderate long-term variability and the tocometer showed some irritability. Urinalysis was performed. Patient was noted to have urine significant for greater than 80 ketones, negative nitrites, small leukocyte esterase, 21-50 white blood cells, 21-50 squamous cells, 1+ bacteria. RESEARCH PHYSICIST-3 demonstrated no evidence of Trichomonas Holly or Gardnerella. ASSESSMENT AND PLAN: Patient is a 22-year-old female with an intrauterine at 24 weeks and 2 days, who has been having some longstanding ligamentous pains primarily seems to be stemming from her pubic bone. In reviewing her ultrasound report pt does not have a placenta previa. There is no evidence of labor at this time, her cervix is closed and firm and unlabored, no consistent uterine contractions seen on the monitor. Patient does have some evidence of possible urinary tract infection, for which we will be treating her with Macrobid to be taken twice daily for the next 7 days. Patient has also been given information or has been recommended, talking to her primary OB about physical therapy with a therapist that specializes in , as she may be able to help with the pubic bone tenderness as this has been series for causing significant pain for quite some time now. Of note, patient had to leave prior to the lab results becoming available and was given instructions to call up to labor and delivery to get those results. I have not reached missed dialysis yet to discuss her lab findings but will be seeking to contact her and find that where to send her prescription to. Fetus has been reassuring for gestational age. The patient has been asked to contact Dr. Janeth Aviles for followup. PADMINID
== END 2018-03-24 18:05 | disposition home or self-care (01) ==
LOC: L&D/OP 16:29
PROVIDERS: ATTEND Family Medicine
DX: O99.89 Other specified diseases and conditions complicating pregnancy, childbirth and the puerperium (principal); R10.2 Pelvic and perineal pain; O99.342 Other mental disorders complicating pregnancy, second trimester; F20.9 Schizophrenia, unspecified; F31.9 Bipolar disorder, unspecified; Z88.0 Allergy status to penicillin; Z3A.24 24 weeks gestation of pregnancy
CPT/HCPCS: 81001; 87480; 87510; 87660

== ENCOUNTER 2018-04-09 10:14 | Outpatient (CLI) | payer OTHER | END 2018-04-09 10:15 | disposition home or self-care (01) | LOC: BICULT 10:14 | PROVIDERS: ATTEND Family Medicine | DX: Z34.82 Encounter for supervision of other normal pregnancy, second trimester (principal); Z3A.26 26 weeks gestation of pregnancy | CPT/HCPCS: 76816 ==

== ENCOUNTER 2018-04-22 05:00 | Day surgery (SDC) | payer OTHER ==
[2018-04-22 05:42] VITALS: TEMP 98.3; BMI 32.3
[2018-04-22 07:25] LABS: FFN Internal QC Analyzer PASS (PASS); FFN Internal QC Cassette PASS (PASS); Fetal Fibronectin Negative (Negative)
--- NOTE | 2018-04-22 07:56 | PRG ---
DATE OF SERVICE: 04/22/2018. PRIMARY SURVEILLANCE SUPERVISOR: Dr. Janeth Aviles. CHIEF COMPLAINT: Back pain. HISTORY OF PRESENT ILLNESS: The patient is a 22-year-old G2, P1 female with an intrauterine pregnanc y at 28 weeks and 3 days who is presenting to Labor and Delivery this morning after being awoken with a right-sided lower back pain. She reports that the pain is sharp and makes moving very difficult. She tried taking 3 Tylenol PM last night to help her sleep through the pain, but was unable to. She denies having this pain previously in this or in her last . The pain is worse wi th lying on her back and with movement. The patient denies leakage of fluid or vaginal bleeding. Sh e denies fever or fall, headache, chest pain, shortness of breath, nausea, vomiting, diarrhea, consti pation. She denies any new rashes, hip problems, knee problems, muscle weakness. She denies vaginal bleeding, leakage of fluid, urinary urgency or frequency. She reports that this pain shoots to her abdomen, sometimes last for about 10 seconds. PAST MEDICAL HISTORY: She reports asthma as a child, history of depression, schizophrenia, bipolar d isorder, drug abuse and frequent UTIs. PAST SURGICAL HISTORY: Tonsillectomy and right hand surgery. SOCIAL HISTORY: Reports history of suicide attempt by overdose in 2008, has history of drug abuse. Denies current drug, alcohol or tobacco use. ALLERGIES: AMOXICILLIN, reports tingling and swelling. CURRENT MEDICATIONS: vitamins. OB LABORATORY DATA: RPR nonreactive, hepatitis B surface antigen nonreactive, HIV nonreactive. She is rubella immune. She has a drug screen negative in January. PHYSICAL EXAMINATION: VITAL SIGNS: Blood pressure 101/52, heart rate of 74, respiratory rate of 16, temperature 98.5. GENERAL: She appears to be in no acute distress. She is alert and oriented, cooperative and pleasan t to interact with. HEENT: Head is normocephalic, atraumatic. LUNGS: Clear to auscultation bilaterally. HEART: Has a regular rate and rhythm. ABDOMEN: Soft, gravid. She does have some mild tenderness with deviation of the uterus toward the l eft with pain on her right side, reproducing some of her pain from chief complaint. The patient also has tenderness to palpation in the right SI joint, also reproducing pain from her chief complaint. EXTREMITIES: Nontender, nonedematous. Vulva is without masses, lesions or erythema. fibronec tin was collected. Cervix is closed on digital exam. heart tracing performed. Fetus noted to be in the 130s with moderate long-term variability and positive 10/10 accelerations. Tocometer showing some irritability, but not felt by the patient. Fe brennan Fibronectin is negative. ASSESSMENT AND PLAN: The patient is a 22-year-old G2, P1 female with an intrauterine at 28 weeks and 3 days having primarily musculoskeletal pains causing her discomfort. The patient has no evidence of labor at this time. Fetus has a category 1 tracing. The patient had been taken 3 Tyleno l PM on her own prior to coming and is driving herself home. Therefore narcotics have not been used to help her with the pain. We have explained this to the patient and is comfortable with the plan. The patient will be discharged home. She has an appointment on with Dr. Aviles, which we rojas ve encouraged that she keep.
== END 2018-04-22 07:35 | disposition home or self-care (01) ==
LOC: L&D/OP 05:00
PROVIDERS: ATTEND Family Medicine
DX: O99.89 Other specified diseases and conditions complicating pregnancy, childbirth and the puerperium (principal); M54.9 Dorsalgia, unspecified; Z88.0 Allergy status to penicillin; Z3A.28 28 weeks gestation of pregnancy
CPT/HCPCS: 59025; 82731; 99283

== ENCOUNTER 2018-04-22 13:02 | Inpatient (IN) | payer OTHER ==
[2018-04-22 14:39] LABS: Bilirubin Negative (Negative); Blood, Urine Large (Negative); Clarity TURBID (Clear); Glucose, Urine (Dipstick) Negative (Negative); Leukocyte Large (Negative); Nitrite Positive (Negative); Protein, Urine (Dipstick) 100 mg/dL (Neg-Trace); Specific Gravity, Urine 1.015 (1.002-1.036)
[2018-04-22 14:40] LABS: Bacteria/HPF 4+ HPF (None Seen); Hyaline Casts/LPF 0-3 HYALINE CAST LPF (0-3 Hyaline); Squamous Epithelial 0-3 HPF (0-3)
[2018-04-22 14:45] LABS: Yeast-AUWi Flag 175.4 (0-25.0)
[2018-04-22 14:56] LABS: Yeast-All Forms None Seen HPF (None Seen)
[2018-04-22 15:35] LABS: #Lymphocytes 1.2 thou/uL (1.20-3.40); #Monocytes 0.6 thou/uL (0.11-0.59); %Basophils 0.3 % (0.0-1.0); %Eosinophils 0.3 % (0.0-10.0); %Lymphocytes 11.3 % (21.0-51.0); %Monocytes 5.4 % (0.0-10.0); %Neutrophils 82.8 % (42.0-75.0); Hemoglobin 11.6 g/dL (12.0-16.0); Mean Corpuscular HGB CONC 35.3 g/dL (32.0-36.0); Mean Corpuscular Hemoglobin 31.6 pg (27.0-31.0); Mean Corpuscular Volume 89.4 fL (78.0-98.0); Mean Platelet Volume 7.5 fL (7.4-10.4); Platelet Count 235 thou/uL (130-400); Red Blood Cell (RBC) Count 3.67 mill/uL (4.20-5.40); White Blood Cell (WBC) Count 10.9 thou/uL (4.8-10.8)
[2018-04-22 15:41] VITALS: BMI 32.3
[2018-04-22] MEDS ORDERED: Lactated Ringer's 1,000 ML IV SCH (15:45)
--- NOTE | 2018-04-22 15:50 | PDOC.LDHP ---
Labor and Delivery H&P Chief complaint: abdominal pain, other (back pain) HPI: Patient came in earlier this morning with complaint of contractions and ROM. FFn was negative and she was sent home with diagnosis of likely musculoskeletal pain and return precautions. Patient went home and noted blood in her urine, and her abdominal pain was not improving so she called the ambulance. She states she has a sharp low back pain. She also has abdominal cramping, nothing makes them better or worse. She has "pressure" when urinating but not aston burning. This all started just this morning. No fevers. Current gestational age (weeks): 28 (28.3) Due date: 07/12/18 Grav: 2 Para: 1 Past Medical History: Asthma, depression, schizophrenia, bipolar, drug abuse, frequent UTIs Current medications: pre- vitamins Allergies/Adverse Reactions: Allergies Allergy/AdvReac Type Severity Reaction Status Date / Time amoxicillin Allergy Swollen Verified 03/24/18 16:58 Lips Penicillins Allergy Swollen Verified 03/24/18 16:58 Lips Social history: none - Physical Exam Vital signs reviewed and normal: yes General: other (patient stable, she pages nurses frequently) Heart: RRR Lungs: CTAB Abdomen: other (CVA tenderness on the R) Extremeties: trace edema FHT: category 1 - Vaginal Exam cm dilated: 0 (no bleeding on SVE) Effacement: 0% Station: -3 - Assessment Pyelonephritis - Plan -: # Pyelonephritis - Urine culture - rocephin - NS at 100ml/hr - tylenol - CBC, BMP in AM Code: full Fluids: NS 100 ml/hr Diet: regular dispo: 2 days
[2018-04-22 15:55] LABS: Anion Gap 15 mmol/L (10-20); BUN (Urea Nitrogen) 5 mg/dL (7.0-18.7); Calc. Creatinine Clearance 157 mL/min (70-130); Calcium 9.1 mg/dL (7.8-10.44); Carbon Dioxide 19 mmol/L (22-29); Chloride 107 mmol/L (98-107); Estimated GFR-MDRD Greater than 90; Glucose 85 mg/dL (70-105); Potassium 3.9 mmol/L (3.5-5.1); Sodium 137 mmol/L (136-145)
[2018-04-22] MEDS: Sodium Chloride 0.9% 1,000 ML IV SCH ×2 (16:17→22:22)
[2018-04-22] MEDS: cefTRIAXone\\ROCEPHIN 1 GM in Sodium Chloride 0.9% 100 ML IVPB SCH (16:18)
[2018-04-22] MEDS ORDERED: Promethazine HCl 25 MG/ML VIAL IM PRN (17:33)
[2018-04-22] MEDS ORDERED: Ondansetron HCl/PF 4 MG/2 ML Vial IVP PRN (17:33)
[2018-04-22] MEDS: Acetaminophen 500 MG TAB PO PRN (18:53)
[2018-04-23] MEDS: Acetaminophen 500 MG TAB PO PRN ×3 (00:56→20:16)
[2018-04-23 06:19] LABS: Hemoglobin 10.9 g/dL (12.0-16.0); Mean Corpuscular HGB CONC 35.2 g/dL (32.0-36.0); Mean Corpuscular Hemoglobin 31.7 pg (27.0-31.0); Mean Platelet Volume 7.6 fL (7.4-10.4); Platelet Count 237 thou/uL (130-400); RBC Distribution Width 12.1 % (11.5-14.5); Red Blood Cell (RBC) Count 3.43 mill/uL (4.20-5.40); White Blood Cell (WBC) Count 8.2 thou/uL (4.8-10.8)
[2018-04-23 06:34] LABS: Anion Gap 10 mmol/L (10-20); BUN (Urea Nitrogen) 5 mg/dL (7.0-18.7); Calc. Creatinine Clearance 186 mL/min (70-130); Calcium 8.7 mg/dL (7.8-10.44); Carbon Dioxide 22 mmol/L (22-29); Chloride 108 mmol/L (98-107); Estimated GFR-MDRD Greater than 90; Glucose 91 mg/dL (70-105); Potassium 3.5 mmol/L (3.5-5.1); Sodium 136 mmol/L (136-145)
--- NOTE | 2018-04-23 08:15 | PRG ---
DATE OF SERVICE: 04/23/2018 TIME OF SERVICE: 07:45. SUBJECTIVE: The patient is resting comfortably. She states she is having a little bit of pain acros s her lower abdomen, but none in her back at this time. She reports an active fetus. PHYSICAL EXAMINATION LUNGS: Clear to auscultation bilaterally. ABDOMEN: No CVA tenderness. Mild discomfort in lower quadrants. No guarding. FHT is 130s to 140s. EXTREMITIES: Without clubbing, cyanosis or edema. LABORATORY STUDIES: Hematocrit stable at 31%. White count is down to 8.2. Repeat basic metabolic w as within normal limits. Urine culture is pending. IMPRESSION: A 2, para 1 at 28-29 weeks gestation with pyelonephritis complicated by asthma, depression, schizophrenia, bipolar, drug abuse and frequent urinary tract infections. PLAN: Continue IV antibiotics, Rocephin. Anticipate positive urine culture with antibiogram. We wi ll discharge home when that is available. The patient to keep follow up with Dr. Janeth Aviles.
[2018-04-23] MEDS: Sodium Chloride 0.9% 1,000 ML IV SCH ×2 (09:00→18:01)
[2018-04-23] MEDS: cefTRIAXone\\ROCEPHIN 1 GM in Sodium Chloride 0.9% 100 ML IVPB SCH (15:42)
[2018-04-24] MEDS: Sodium Chloride 0.9% 1,000 ML IV SCH (04:06)
--- NOTE | 2018-04-24 07:26 | DIS ---
DATE OF ADMISSION: 04/22/2018 DATE OF DISCHARGE: 04/24/2018 DIAGNOSES: 1. Pyelonephritis. 2. A 28-week intrauterine . HOSPITAL COURSE: The patient was admitted after presenting with abdominal and back pain and found to have pyelonephritis. She was placed on Rocephin for antibiotics and had improvement of her symptoms . She remained afebrile throughout her stay. She was meeting milestones for discharge today. ' FOLLOWUP: Follow up with Dr. Janeth Aviles tomorrow for scheduled appointment. DIET: Regular. ACTIVITIES: As tolerated. MEDICATIONS: Keflex 500 mg b.i.d. for 5 days, then once every day for suppression. INSTRUCTIONS: Return or call a doctor for worsening of symptoms, fever, contractions, vaginal bleedi ng, leakage of fluid or other concerns.
[2018-04-24 08:01] VITALS: BP 107/54; TEMP 98.6
[2018-04-24] MEDS: Acetaminophen 500 MG TAB PO PRN (09:18)
== END 2018-04-24 09:40 | disposition home health service (06) | DRG 781 ==
LOC: L&D/OP 13:02 → 3SW 16:45
PROVIDERS: ADMIT Family Medicine; ATTEND Family Medicine
DX: O23.03 Infections of kidney in pregnancy, third trimester (principal); Z3A.29 29 weeks gestation of pregnancy
CPT/HCPCS: 36415; 51701; 59025; 80048; 81003; 81015; 82731; 85025; 85027; 87077; 87086; 87186; 99283; 99285; A4216; J0696; J7050

== ENCOUNTER 2018-04-26 13:09 | Outpatient (CLI) | payer OTHER ==
--- NOTE | 2018-04-26 15:48 | ULT ---
RENAL SONOGRAM 04/26/18 HISTORY: Pyelonephritis. COMPARISON: None. FINDINGS: The kidneys demonstrate a normal sonographic appearance bilaterally without evidence of renal of a re nal mass, calculus, or hydronephrosis. There is an echogenic focus seen in the inferior pole right ki dney, within the cortex, but there is no posterior shadowing. This probably represents a prominent ve ssel as opposed to a tiny calcification. The right kidney measures 10.2 cm x 5 cm with the left kidne y measuring 11.6 cm x 6 cm. The urinary bladder is mostly decompressed and not well evaluated on this exam. Where seen, the urina ry bladder is grossly normal in appearance. IMPRESSION: Normal appearing bilateral kidneys. POS: DONN
== END 2018-04-26 13:10 | disposition home or self-care (01) ==
LOC: ULT 13:09
PROVIDERS: ATTEND Family Medicine
DX: O23.03 Infections of kidney in pregnancy, third trimester (principal)
CPT/HCPCS: 76770

== ENCOUNTER 2018-05-08 13:57 | Day surgery (SDC) | payer OTHER ==
[2018-05-08 15:33] VITALS: BMI 32.3
[2018-05-08 15:39] VITALS: BP 124/70; TEMP 99.5
[2018-05-08] MEDS: Acetaminophen 500 MG TAB PO SCH (16:59)
--- NOTE | 2018-05-08 17:05 | PDOC.LDHP ---
Labor and Delivery H&P Chief complaint: other (fall) HPI: 22 y/o at 30w5d, patient of Dr. Janeth Aviles, presents after falling at home. Patient reports she has longstanding ear pain for which she sees Dr. Aviles and fell down because it made her dizzy. Patient denies abdominal trauma and only fell on her back side. Has pain in her pubic bone that is constant but denies ctx, vb, LOF, or decreased FM. ROS neg for HEENT, cv, pulm, gi, gu, neuro, psych, skin, musculoskeletal or constitutional symptoms other than mentioned above. OB History Details: 1 prior term Current complications: other (pyelo this ) Past Medical History: Recurrent otitis externa Ovarian cysts schizophrenia/depression Hx suicide attempt Frequent UTIs Current medications: pre- vitamins Previous surgical history: other (tonsils and adenoids, right hand) Allergies/Adverse Reactions: Allergies Allergy/AdvReac Type Severity Reaction Status Date / Time amoxicillin Allergy Swollen Verified 03/24/18 16:58 Lips Penicillins Allergy Swollen Verified 03/24/18 16:58 Lips Social history: drug use (history of) - Physical Exam Vital signs reviewed and normal: yes General: NAD, resting Lungs: nonlabored breathing Abdomen: gravid Extremeties: no edema FHT: category 1 (150s, mod variability, + 10x10 accels, no decels) [place] contractions every: none - OB Labs Blood type: A RH: positive - Assessment 22 y/o at 30w5d with no e/o PTL or abruption. All discomfort has now resolved. status reassuring with reactive NST. Has recurrent otitis externa but allergic to pcns. - Plan -: Given Tylenol for pain. Discussed with Janeth Aviles, given Rx for Cortisporin otic drops to be used TID. To follow up with Dr. Aviles's office tomorrow as she missed her appointment today. D/c home with precautions.
== END 2018-05-08 17:29 | disposition home health service (06) ==
LOC: ERS 13:57 → L&D/OP 14:51
PROVIDERS: ATTEND Family Medicine
DX: O9A.213 Injury, poisoning and certain other consequences of external causes complicating pregnancy, third trimester (principal); Z88.0 Allergy status to penicillin; Z3A.30 30 weeks gestation of pregnancy
CPT/HCPCS: 99283; 99284

== ENCOUNTER 2018-05-17 14:45 | Day surgery (SDC) | payer OTHER ==
[2018-05-17 15:29] VITALS: BMI 32.3
--- NOTE | 2018-05-17 17:37 | PDOC.LDHP ---
Labor and Delivery H&P Chief complaint: contractions HPI: 22 y/o at 32w0d, patient of Dr. Janeth Aviles, presents with abdominal pains. Patient reports some spotting occasionally that has been going on off and on through the and abdominal pain and pressure. Pain seems worse when the baby moves and is in her pelvic bones. Michell heavy VB, LOF, or decreased FM. Still having occasional dizziness. Patient asked several times if we can just cut the baby out. ROS neg for HEENT, cv, pulm, gi, gu, neuro, psych, skin, musculoskeletal or constitutional symptoms other than mentioned above. OB History Details: 1 prior term Current complications: other (pyelo this ) Past Medical History: Recurrent otitis externa Ovarian cysts Schizophrenia/Depression Frequent UTIs Current medications: pre- vitamins Previous surgical history: other (Tonsils and adenoids, hand) Allergies/Adverse Reactions: Allergies Allergy/AdvReac Type Severity Reaction Status Date / Time amoxicillin Allergy Swollen Verified 05/17/18 15:26 Lips Penicillins Allergy Swollen Verified 05/17/18 15:26 Lips Social history: drug use (history of) - Physical Exam Vital signs reviewed and normal: yes General: NAD, resting Lungs: nonlabored breathing Abdomen: gravid Extremeties: no edema FHT: category 1 (145, mod variability, + accels, ?single variable decel) [place] contractions every: rare - Vaginal Exam cm dilated: 0 (unchanged after 1 hour) Effacement: 0% Station: -3 - Assessment 22 y/o at 32w0d with no e/o PTL. Pain likely due to musculoskeletal discomforts of . status reassuring with reactive NST. I performed a bedside ultrasound to assess DEENA, which was normal at 15cm. - Plan -: D/c home with precautions. Advised to keep all appointments and to make an appointment sooner if needed.
== END 2018-05-17 17:42 | disposition home or self-care (01) ==
LOC: L&D/OP 14:45
PROVIDERS: ATTEND Family Medicine
DX: O47.03 False labor before 37 completed weeks of gestation, third trimester (principal); Z88.0 Allergy status to penicillin; Z3A.32 32 weeks gestation of pregnancy
CPT/HCPCS: 76815; 99282

== ENCOUNTER 2018-06-10 04:55 | Emergency (ER) | payer OTHER | END 2018-06-10 05:37 | disposition home or self-care (01) | LOC: ERS 04:55 | DX: O99.89 Other specified diseases and conditions complicating pregnancy, childbirth and the puerperium (principal); H10.9 Unspecified conjunctivitis; O99.343 Other mental disorders complicating pregnancy, third trimester; F31.9 Bipolar disorder, unspecified; F41.9 Anxiety disorder, unspecified; F90.9 Attention-deficit hyperactivity disorder, unspecified type; Z3A.35 35 weeks gestation of pregnancy | CPT/HCPCS: 99282 ==

== ENCOUNTER 2018-06-29 04:44 | Inpatient (IN) | payer OTHER ==
[2018-06-29 05:06] VITALS: BMI 32.7
--- NOTE | 2018-06-29 05:43 | PDOC.LDHP ---
Labor and Delivery H&P Chief complaint: other (diarrhea) HPI: This 22 yo at 38.0 wks comes into triage by ambulance with chief complaint of diarrhea for 2 days. Shes states she has had 2-3 episodes for 2 days, denies any blood in the stool. She denies fevers, chills, sweats, or cough. She still tolerates PO. She states she vomited 1 time yesterday. Feeling baby move often. Occassional contractions, maybe every 10 minutes, she is not quite sure. States contractions or painful mostly in the back. Denies dysuria. Denies vaginal bleeding or discharge. ROS General: denies: fever/chills, weight/appetite/sleep changes, fatigue Eyes: reports: vision changes ENT: denies: nasal congestion Cardiovascular: denies: chest pain, palpitation Respiratory: denies: cough, congestion, shortness of breath Gastrointestinal: see hpi Genitourinary (Female): denies: dysuria Musculoskeletal: denies: pain, stiffness Neurologic: reports: headache. denies: numbness Integumentary: denies: itching, rash Hematologic/Lymphatic: denies: prolonged or excessive bleeding - Physical Exam General: NAD, awake, alert and oriented HEENT: normocephalic and atraumatic, PERRLA Heart: RRR, normal S1/S2, no murmurs/rubs/gallops, pulses present General: CTAB, no respiratory distress, good air movement Abdomen: soft, gravid Musculoskeletal: normal gait and station Neurological: no focal deficit Skin: no rash, capillary refill <2 seconds Lymphatic: no unusual bruising or bleeding Current gestational age (weeks): 38 Due date: 07/13/18 Grav: 2 Para: 1 Current complications: none Current medications: pre- vitamins Social history: none - Vaginal Exam cm dilated: 2 Effacement: 25% Station: -3 - Plan -: # Acute viral gastroenteritis - 1 cxn noted on 10 min of monitoring, will monitor - no abdominal pain to palpation, Rosving's negative, no rebound or guarding - will give 500 ml bolus lactated ringers <Orlando Martinez - Last Filed: 06/29/18 05:45> - Plan Plan: other (Faculty Note: Agree with Dr Martinez evaluation. Please see separtate faculty attestation of care. No acute needs at this time.) <Rudy Parrish - Last Filed: 06/29/18 06:02> Allergies/Adverse Reactions: Allergies Allergy/AdvReac Type Severity Reaction Status Date / Time amoxicillin Allergy Swollen Verified 06/29/18 04:58 Lips Penicillins Allergy Swollen Verified 06/29/18 04:58 Lips
[2018-06-29] MEDS ORDERED: Lactated Ringer's 1,000 ML IV SCH (05:45)
--- NOTE | 2018-06-29 06:01 | PDOC.EVN ---
Event Note - Event Note Event Note: faculty attestation: patient has luz seen and evaluated. Agree with Dr Michelle barrett. there is no current evidence of labor or other maternal acute morbidity. Maeve kruger reviewed. IVF hydration ordered for now. OK for outpatient follow up with Janeth aguilar.
--- NOTE | 2018-06-29 06:31 | PDOC.EVN ---
Event Note - Event Note Event Note: Patent with some low amplitute contractions every 3-4 minutes...we will labor obs for now.
[2018-06-29] MEDS: Lactated Ringer's 1,000 ML IV SCH ×3 (07:30→13:30)
--- NOTE | 2018-06-29 07:42 | PDOC.EVN ---
Event Note - Event Note Event Note: Repeat exam was 3cm (was 2-3), still with contractions every 1-3 minutes. EGA is 38 weeks 1 day, . We will recheck cervix in 2 hours and admit if further change (total of 4 hrs obs).
[2018-06-29] MEDS ORDERED: Butorphanol Tartrate 1 MG/ML VIAL ONE (09:30)
[2018-06-29] MEDS ORDERED: Butorphanol Tartrate 1 MG/ML VIAL SLOW IVP SCH (09:45)
[2018-06-29] MEDS ORDERED: HYDROcodone/Acetaminophen 5/325 mg Tablet PO PRN ×2 (11:19)
[2018-06-29] MEDS ORDERED: Lidocaine 1% (PF) 30 ML VIAL SC PRN (11:19)
[2018-06-29] MEDS ORDERED: Acetaminophen 500 MG TAB PO PRN (11:19)
[2018-06-29] MEDS ORDERED: Ibuprofen 800 MG TAB PO PRN (11:19)
[2018-06-29] MEDS ORDERED: Diphenoxylate HCl/Atropine Tablet PO PRN ×2 (11:19)
[2018-06-29] MEDS ORDERED: Misoprostol 200 MCG TAB PR PRN (11:19)
[2018-06-29] MEDS ORDERED: NS / Oxytocin 40 units/1000ml 1,000 ML IV PRN (11:19)
[2018-06-29] MEDS ORDERED: Butorphanol Tartrate 1 MG/ML VIAL SLOW IVP PRN (11:19)
[2018-06-29] MEDS ORDERED: Promethazine HCl 25 MG/ML VIAL IM PRN ×2 (11:19→13:19)
[2018-06-29] MEDS ORDERED: Methylergonovine 0.2 MG/ML VIAL IM PRN (11:19)
[2018-06-29] MEDS ORDERED: Ondansetron PF 4 MG/2 ML Vial IVP PRN ×3 (11:19→21:13)
[2018-06-29] MEDS ORDERED: Carboprost 250 MCG/ML AMP IM PRN (11:19)
[2018-06-29] MEDS ORDERED: NS w/ Oxytocin 10 units 500 ML IV SCH (11:30)
--- NOTE | 2018-06-29 11:49 | PDOC.LDHP ---
Labor and Delivery H&P Chief complaint: contractions HPI: 22 y/o at 38w1d, patient of Janeth Aviles, presents with diarrhea and contractions. She has been radha q 2-3 minutes this morning. Denies VB, LOF, or decreased FM. ROS neg for HEENT, CV, pulm, GI, , neuro, psych, skin, musculoskeletal, or constitutional symptoms other than mentioned above. OB History Details: Prior Current complications: other (pyelo) Past Medical History: Bipolar Hx drug use pyelo during Current medications: pre-carlos vitamins Previous surgical history: none Allergies/Adverse Reactions: Allergies Allergy/AdvReac Type Severity Reaction Status Date / Time amoxicillin Allergy Swollen Verified 06/29/18 04:58 Lips Penicillins Allergy Swollen Verified 06/29/18 04:58 Lips Social history: none - Physical Exam Vital signs reviewed and normal: yes General: NAD, breathing through contractions Lungs: nonlabored breathing Abdomen: gravid Extremeties: no edema FHT: category 1 (130s, mod variability, + accels, no decels) [place] contractions every: 2-4 - Vaginal Exam cm dilated: 4 (changed from 2cm) Effacement: 50% Station: -2 - Assessment L&D Assessment: term patient in labor - Plan Plan: admit to L&D, labor augmentation if indicated, GBS antibiotic prophylaxis , informed consent obtained, anesthesia consult for pain management
[2018-06-29 12:07] LABS: Mean Corpuscular HGB CONC 35.1 g/dL (32.0-36.0); Mean Corpuscular Hemoglobin 32.1 pg (27.0-31.0); Mean Corpuscular Volume 91.5 fL (78.0-98.0); Mean Platelet Volume 8.1 fL (7.4-10.4); Platelet Count 303 thou/uL (130-400); RBC Distribution Width 12.4 % (11.5-14.5); Red Blood Cell (RBC) Count 4.06 mill/uL (4.20-5.40); White Blood Cell (WBC) Count 7.8 thou/uL (4.8-10.8)
[2018-06-29] MEDS ORDERED: Fentanyl 4 mcg/Bup 0.1% Cadd 100 ML ONE (12:13)
[2018-06-29] MEDS ORDERED: NS w/ Oxytocin 10 units 500 ML ONE (12:13)
[2018-06-29 12:29] LABS: Amphetamine Not Detected (NotDetected); Benzodiazepine Screen Not Detected (NotDetected); Cocaine Metabolite Screen Not Detected (NotDetected); Medtox Reader # READER 1; Methadone Not Detected (NotDetected); Methamphetamine Not Detected (NotDetected); Opiate Screen Not Detected (NotDetected); Phencyclidine (PCP) Not Detected (NotDetected); THC/Cannabinoid Screen Not Detected (NotDetected); Tricyclic Screen Not Detected (NotDetected)
[2018-06-29 12:30] LABS: Barbiturates Screen Not Detected (NotDetected); Medtox Control Line Valid? VALID (VALID); Oxycodone Screen Not Detected (NotDetected)
[2018-06-29 12:52] LABS: Syphilis Antibody Nonreactive (Nonreactive); Syphilis Antibody Index 0.06 S/CO (<1.00 Non-Reactive)
[2018-06-29 12:53] LABS: HBSAg Index 0.27 S/CO (0-0.99); Hep B Surf Ag Non-Reactive S/CO (NonReactive)
[2018-06-29] MEDS ORDERED: diphenhydrAMINE 50 MG/ML VIAL IVP PRN (13:19)
[2018-06-29] MEDS ORDERED: Naloxone HCl 0.4 mg/ml Vial IVP PRN ×2 (13:19)
[2018-06-29] MEDS ORDERED: Lactated Ringer's 500 ML IV PRN (13:19)
[2018-06-29] MEDS ORDERED: Eucerin (Mineral Oil/Petrolatum,White) 30 gm Jar TOP PRN (13:19)
[2018-06-29] MEDS ORDERED: ePHEDrine/0.9% NaCl/PF SYRINGE 50 mg/10 ml SLOW IVP PRN (13:19)
[2018-06-29] MEDS ORDERED: Fentanyl 4 mcg/Bupivacaine 0.1% Cassette 100 ML EPIDURAL SCH (13:30)
[2018-06-29] MEDS ORDERED: Communication Order-Pharmacy FS SCH (13:30)
--- NOTE | 2018-06-29 13:44 | PDOC.LDPN ---
Labor & Delivery Progress Note - Subjective Subjective: comfortable, other (nauseous) - Objective Abnormal vital signs: Hypotenive after epidural (SBP 80's) General: resting Uterine fundus: non tender SVE: 13:30 Dilation: 5 Effacement: 50% Station: -1 FHT: category 1, variability present [place] contractions every: q2-4 min AROM: clear fluid (large amount) - Assessment (1) Term Code(s): Z34.80 - ENCOUNTER FOR SUPRVSN OF NORMAL , UNSP TRIMESTER Current Visit: Yes Status: Acute (2) Active labor Code(s): BKP2372 - Current Visit: Yes Status: Acute Plan: continue plan of care
[2018-06-29] MEDS ORDERED: CEFAZOLIN 1 GM in Sodium Chloride 0.9% 100 ML IVPB SCH (14:00)
--- NOTE | 2018-06-29 19:00 | PDOC.OPDEL ---
OB Operative/Delivery Note Delivery Dr/Surgeon: Catrina Israel Pre-Delivery Diagnosis: active labor Procedure/Post Delivery Dx: spontaneous vaginal delivery Weeks gestation: 38 (38.1 wks ) Anesthesia: epidural - Findings A Sex: male - 1 min: 9 - 5 min: 9 - Additional Findings/Plan Placenta delivered: spontaneous Repaired Obstetrical Laceration: none Estimated blood loss: QBL 148 mL Compilations/Other Findings: Pre-op Diagnosis: 1. Term intrauterine in labor 2. Hx of drug use, Bipolar disorder, and Pyelonephritis in current 3. GBS positive Post-op Diagnosis: 1. Term intrauterine , delivered 2. same as above 3. Indications: A 22 y/o female presents in active labor Delivery Note: This is 22yo F @ 38.1 wks who delivered a viable M infant at 18:21 on 06/29/2018. Following an uneventful antepartum course, a vigorous male was delivered over an intact perineum in the occipitoanterior position. Anterior shoulder and then remainder of the body delivered. No nuchal cord. The head was held down and mouth and nares were bulb suctioned. Cord clamped and cut after approximately 1 minute and cord blood collected. Placenta delivered intact with a 3 vessel cord noted. Fundal massage was performed and the fundus was firm. The cervix and vagina were inspected and found to be free of lacerations. went to nursery in good condition for routine care. Apgars were 9/9 at 1 & 5 minutes, respectively. Patient tolerated delivery well and went to after routine recovery/ care. Patient GBS positive and was given one dose of ancef prior to deliver of . Post delivery plan: routine recovery
[2018-06-29] MEDS ORDERED: NS / Oxytocin 40 units/1000ml 1,000 ML IV SCH (21:13)
[2018-06-29] MEDS ORDERED: Bisacodyl 10 MG SUPP PR PRN (21:13)
[2018-06-29] MEDS ORDERED: Milk Of Magnesia 30 ML UDCUP PO PRN (21:13)
[2018-06-29] MEDS ORDERED: Lanolin Ointment 7 GM TUBE TOP PRN (21:13)
[2018-06-29] MEDS ORDERED: Docusate Calcium (SURFAK) 240 MG CAP PO SCH (21:30)
[2018-06-29] MEDS: Ibuprofen 800 MG TAB PO SCH (21:48)
[2018-06-30] MEDS: Ibuprofen 800 MG TAB PO SCH ×4 (05:46→20:27)
[2018-06-30] MEDS ORDERED: Adacel (T-DAP) 0.5 ML VIAL IM ONE (09:00)
[2018-06-30] MEDS: Prenatal Vitamin 1 TAB PO SCH (10:11)
[2018-06-30] MEDS: Acetaminophen 325 MG TAB PO PRN ×2 (12:45→23:19)
[2018-06-30] MEDS: Docusate Calcium (SURFAK) 240 MG CAP PO SCH (12:46)
[2018-06-30] MEDS: Ferrous Sulfate 325 MG TAB PO SCH ×2 (12:47→18:42)
[2018-06-30] MEDS ORDERED: Lidocaine 2% MPF 10 ML AMP (For Epidural Use) ONE (13:05)
[2018-07-01] MEDS: Docusate Calcium (SURFAK) 240 MG CAP PO SCH ×2 (03:16→08:47)
[2018-07-01] MEDS: Ibuprofen 800 MG TAB PO SCH (03:46)
[2018-07-01 07:59] VITALS: BP 120/73; TEMP 98.4
[2018-07-01] MEDS: Ferrous Sulfate 325 MG TAB PO SCH (08:46)
[2018-07-01] MEDS: Prenatal Vitamin 1 TAB PO SCH (08:48)
== END 2018-07-01 10:19 | disposition home or self-care (01) | DRG 806 ==
LOC: L&D/OP 04:44 → L&D 11:45 → 3SE 21:06
PROVIDERS: ADMIT Family Medicine; ATTEND Family Medicine
PROC: 10E0XZZ Delivery of Products of Conception, External Approach (ICD-10-PCS; principal; 2018-06-29)
PROC: 10907ZC Drainage of Amniotic Fluid, Therapeutic from Products of Conception, Via Natural or Artificial Opening (ICD-10-PCS; 2018-06-29)
DX: O75.3 Other infection during labor (principal); N12 Tubulo-interstitial nephritis, not specified as acute or chronic; Z37.0 Single live birth; O99.62 Diseases of the digestive system complicating childbirth; K92.89 Other specified diseases of the digestive system; Z3A.38 38 weeks gestation of pregnancy; A08.4 Viral intestinal infection, unspecified; O99.824 Streptococcus B carrier state complicating childbirth; F31.9 Bipolar disorder, unspecified; F19.11 Other psychoactive substance abuse, in remission
CPT/HCPCS: 36415; 51702; 80306; 85027; 86780; 86850; 86900; 86901; 87340; 99285; J0595; J0690; J2001; J2405

== ENCOUNTER 2018-07-07 06:38 | Emergency (ER) | payer OTHER | END 2018-07-07 08:20 | disposition home or self-care (01) | LOC: ERS 06:38 | DX: B34.9 Viral infection, unspecified (principal); F41.9 Anxiety disorder, unspecified; F31.9 Bipolar disorder, unspecified; F90.9 Attention-deficit hyperactivity disorder, unspecified type | CPT/HCPCS: 87081; 87430; 87804; 99283 ==

== ENCOUNTER 2018-08-25 13:22 | Emergency (ER) | payer OTHER ==
[2018-08-25 14:15] LABS: #Eosinphils 0.1 thou/uL (0.0-0.7); #Lymphocytes 2.4 thou/uL (1.20-3.40); #Monocytes 0.5 thou/uL (0.11-0.59); #Neutrophils 2.8 thou/uL (1.40-6.50); %Basophils 0.6 % (0.0-1.0); %Lymphocytes 41.4 % (21.0-51.0); %Monocytes 8.4 % (0.0-10.0); %Neutrophils 48.6 % (42.0-75.0); Hemoglobin 13.1 g/dL (12.0-16.0); Mean Corpuscular HGB CONC 34.1 g/dL (32.0-36.0); Mean Corpuscular Hemoglobin 30.5 pg (27.0-31.0); Mean Corpuscular Volume 89.3 fL (78.0-98.0); Mean Platelet Volume 6.9 fL (7.4-10.4); Platelet Count 297 thou/uL (130-400); RBC Distribution Width 10.8 % (11.5-14.5); Red Blood Cell (RBC) Count 4.31 mill/uL (4.20-5.40); White Blood Cell (WBC) Count 5.9 thou/uL (4.8-10.8)
[2018-08-25 14:26] LABS: ALT (SGPT) 10 U/L (8-55); AST (SGOT) 14 U/L (5-34); Alkaline Phosphatase 91 U/L (40-150); Anion Gap 13 mmol/L (10-20); BUN (Urea Nitrogen) 8 mg/dL (7.0-18.7); Bilirubin, Total 0.3 mg/dL (0.2-1.2); Calc. Creatinine Clearance 0 mL/min (70-130); Calcium 9.2 mg/dL (7.8-10.44); Carbon Dioxide 21 mmol/L (22-29); Chloride 107 mmol/L (98-107); Estimated GFR-MDRD Greater than 90; Globulin 3.2 g/dL (2.4-3.5); Glucose 96 mg/dL (70-105); Lipase 12 U/L (8-78); Potassium 3.9 mmol/L (3.5-5.1); Protein, Total 7.2 g/dL (6.0-8.3); Sodium 137 mmol/L (136-145)
[2018-08-25] MEDS ORDERED: Ondansetron PF 4 MG/2 ML Vial ONE (15:37)
[2018-08-25] MEDS ORDERED: Lorazepam 2 MG/ML VIAL ONE (15:37)
[2018-08-25 16:23] LABS: Bilirubin Negative (Negative); Blood, Urine Large (Negative); Clarity CLOUDY (Clear); Glucose, Urine (Dipstick) Negative (Negative); Leukocyte Moderate (Negative); Nitrite Negative (Negative); Protein, Urine (Dipstick) Trace mg/dL (Neg-Trace); pH, Urine 6.5 (5.0-9.0)
[2018-08-25 16:24] LABS: Pregnancy Test - Urine (BHCG) Negative (Negative); Pregu Control Background? CLEAR/WHITE (CLR/WHITE); Pregu Control Bar Appear? YES (CONTROL BAR)
[2018-08-25 16:29] LABS: Hyaline Casts/LPF 4-6 HYALINE CAST LPF (0-3 Hyaline); Pathc Cast-AUWi Flag 0.72 (0-2.49); RBC/HPF 0-3 HPF (0-3)
[2018-08-25 16:31] LABS: Yeast-AUWi Flag 25.2 (0-25.0)
[2018-08-25 16:39] LABS: Bacteria/HPF 1+ HPF (None Seen); Yeast-All Forms None Seen HPF (None Seen)
== END 2018-08-25 16:37 | disposition home or self-care (01) ==
LOC: ERS 13:22 → EEVIPCON 13:22 → ERS 16:37
DX: F41.9 Anxiety disorder, unspecified (principal); F90.9 Attention-deficit hyperactivity disorder, unspecified type; F31.9 Bipolar disorder, unspecified
CPT/HCPCS: 36415; 80053; 81003; 81015; 81025; 83690; 85025; 85652; 86140; 94760; 96374; 96375; J2060; J2405

== ENCOUNTER 2018-11-07 19:43 | Emergency (ER) | payer OTHER, SELFPAY ==
[2018-11-07 20:21] LABS: Bilirubin Small (Negative); Blood, Urine Negative (Negative); Clarity CLEAR (Clear); Glucose, Urine (Dipstick) Negative (Negative); Leukocyte Small (Negative); Nitrite Negative (Negative); Pregnancy Test - Urine (BHCG) POSITIVE (Negative); Pregu Control Background? CLEAR/WHITE (CLR/WHITE); Pregu Control Bar Appear? YES (CONTROL BAR); Protein, Urine (Dipstick) Trace mg/dL (Neg-Trace)
[2018-11-07 20:23] LABS: Bacteria/HPF Rare-Few HPF (None Seen); Hyaline Casts/LPF 7-10 HYALINE CAST LPF (0-3 Hyaline); Pathc Cast-AUWi Flag 1.22 (0-2.49); RBC/HPF 0-3 HPF (0-3)
[2018-11-07 21:07] LABS: #Basophils 0.1 thou/uL (0.0-0.2); #Eosinphils 0.1 thou/uL (0.0-0.7); #Lymphocytes 2.6 thou/uL (1.20-3.40); #Monocytes 0.8 thou/uL (0.11-0.59); #Neutrophils 4.3 thou/uL (1.40-6.50); %Basophils 1.3 % (0.0-1.0); %Eosinophils 1.9 % (0.0-10.0); %Lymphocytes 32.7 % (21.0-51.0); %Neutrophils 54.2 % (42.0-75.0); Hemoglobin 12.9 g/dL (12.0-16.0); Mean Corpuscular HGB CONC 33.9 g/dL (32.0-36.0); Mean Corpuscular Hemoglobin 29.4 pg (27.0-31.0); Mean Corpuscular Volume 86.7 fL (78.0-98.0); Mean Platelet Volume 7.1 fL (7.4-10.4); Platelet Count 319 thou/uL (130-400); RBC Distribution Width 11.8 % (11.5-14.5); White Blood Cell (WBC) Count 7.9 thou/uL (4.8-10.8)
== END 2018-11-07 22:40 | disposition left against medical advice (07) ==
LOC: ERS 19:43
DX: O99.89 Other specified diseases and conditions complicating pregnancy, childbirth and the puerperium (principal); R30.0 Dysuria; O99.340 Other mental disorders complicating pregnancy, unspecified trimester; F90.9 Attention-deficit hyperactivity disorder, unspecified type; F31.9 Bipolar disorder, unspecified; F41.9 Anxiety disorder, unspecified; F99 Mental disorder, not otherwise specified
CPT/HCPCS: 36415; 81003; 81015; 81025; 84702; 85025; 86900; 86901; 87086; 99283

== ENCOUNTER 2018-11-09 15:57 | Emergency (ER) | payer SELFPAY ==
[2018-11-09 16:42] LABS: #Eosinphils 0.1 thou/uL (0.0-0.7); #Lymphocytes 2.2 thou/uL (1.20-3.40); #Monocytes 0.6 thou/uL (0.11-0.59); %Basophils 0.5 % (0.0-1.0); %Eosinophils 1.6 % (0.0-10.0); %Lymphocytes 31.3 % (21.0-51.0); %Monocytes 9.1 % (0.0-10.0); %Neutrophils 57.4 % (42.0-75.0); Hemoglobin 12.4 g/dL (12.0-16.0); Mean Corpuscular HGB CONC 33.8 g/dL (32.0-36.0); Mean Corpuscular Hemoglobin 29.4 pg (27.0-31.0); Platelet Count 286 thou/uL (130-400); Red Blood Cell (RBC) Count 4.22 mill/uL (4.20-5.40); White Blood Cell (WBC) Count 6.9 thou/uL (4.8-10.8)
[2018-11-09 17:12] LABS: Bilirubin Negative (Negative); Blood, Urine Negative (Negative); Clarity CLOUDY (Clear); Glucose, Urine (Dipstick) Negative (Negative); Leukocyte Moderate (Negative); Nitrite Negative (Negative); Protein, Urine (Dipstick) Trace mg/dL (Neg-Trace); Specific Gravity, Urine 1.031 (1.002-1.036); pH, Urine 6.5 (5.0-9.0)
[2018-11-09 17:15] LABS: Bacteria/HPF 2+ HPF (None Seen)
[2018-11-09 17:16] LABS: Pathc Cast-AUWi Flag 2.58 (0-2.49)
--- NOTE | 2018-11-09 17:26 | ULT ---
PELVIC ULTRASOUND: 11/09/18 HISTORY: Pelvic pain. Multiple longitudinal and transverse images of the pelvis is obtained using a multihertz curvilinear transabdominal as well as multihertz endovaginal transducers. Real time, color flow and spectral wave form doppler analysis demonstrates the uterus to measure 8.8 x 5.5 x 6.0 cm. The uterus is of normal size. the endometrium has double wall endometrial thickening of approximately 1.5 cm. No definite aniya dence of uterine mass is seen. Both ovaries visualized with good blood flow. Right ovary measures 1.7 x 2.8 x 2.5 cm while the left ovary measures 2.7 x 1.9 x 1.8 cm. There is a small right ovarian cyst measuring 8 x 7 x 8 mm. No evidence of free pelvic fluid seen. There is an approximately 3 mm area of fluid density within the uterine canal. This may represent a t iny amount of fluid or tiny early gestational sac. Correlate with serum HCG levels and followup sonog rudy if clinically indicated. pole not visualized. IMPRESSION: Possible small amount of fluid or gestational sac seen in the uterine cavity. POS: [facility]
[2018-11-09 17:27] LABS: RBC/HPF 0-3 HPF (0-3)
[2018-11-09 17:28] LABS: Hyaline Casts/LPF 0-3 HYALINE CAST LPF (0-3 Hyaline)
[2018-11-13 00:46] LABS: Chlamydia by PCR DETECTED (NotDetected); GC by PCR Not Detected (NotDetected)
== END 2018-11-09 18:08 | disposition home or self-care (01) ==
LOC: ERS 15:57
DX: O23.41 Unspecified infection of urinary tract in pregnancy, first trimester (principal); O99.341 Other mental disorders complicating pregnancy, first trimester; F41.9 Anxiety disorder, unspecified; F31.9 Bipolar disorder, unspecified; F90.9 Attention-deficit hyperactivity disorder, unspecified type
CPT/HCPCS: 36415; 76856; 81003; 81015; 84702; 85025; 87086; 87480; 87491; 87510; 87591; 87660

== ENCOUNTER 2018-12-05 18:54 | Emergency (ER) | payer MEDICAID ==
--- NOTE | 2018-12-05 20:17 | ULT ---
TRANSABDOMINAL AND TRANSVAGINAL PELVIC ULTRASOUND WITH SHI SCALE, COLOR FLOW, AND SPECTRAL DOPPLER I MAGIN12/05/18 HISTORY: Abdominal pain and vaginal bleeding. FINDINGS: A single live intrauterine gestation is seen with measurements corresponding to an estimated gestatio nal age of 8 weeks, 5 days and ANN at 07/12/19. The crown-rump length measures 1.89 cm and the gestat ional sac diameter measures 3.72 cm. The heart rate measures 182 beats per minute. Both ovaries have a normal appearance and demonstrates flow. No free fluid is seen. IMPRESSION: Single live UIP of 8 weeks, 5 days estimated gestational age and ANN at 07/12/19. POS: [facility]
== END 2018-12-05 19:42 | disposition left against medical advice (07) ==
LOC: ERS 18:54
DX: Z53.21 Procedure and treatment not carried out due to patient leaving prior to being seen by health care provider (principal)
CPT/HCPCS: 36415; 76856; 84702; 86900; 86901

== ENCOUNTER 2018-12-07 18:32 | Emergency (ER) | payer MEDICAID ==
[2018-12-07 19:06] LABS: Bilirubin Negative (Negative); Blood, Urine Negative (Negative); Clarity CLEAR (Clear); Glucose, Urine (Dipstick) Negative (Negative); Leukocyte Small (Negative); Nitrite Negative (Negative); Pregnancy Test - Urine (BHCG) POSITIVE (Negative); Pregu Control Background? CLEAR/WHITE (CLR/WHITE); Pregu Control Bar Appear? YES (CONTROL BAR); Protein, Urine (Dipstick) Negative (Neg-Trace); Specific Gravity 1.013 (1.002-1.036); Specific Gravity, Urine 1.013 (1.002-1.036)
[2018-12-07 19:08] LABS: Bacteria/HPF None Seen HPF (None Seen); Hyaline Casts/LPF 0-3 HYALINE CAST LPF (0-3 Hyaline); RBC/HPF 0-3 HPF (0-3); Squamous Epithelial 0-3 HPF (0-3)
--- NOTE | 2018-12-07 19:43 | ULT ---
Obstetric sonogram transabdominal imaging with duplex evaluation HISTORY: Early . Pelvic pain. FINDINGS: Urinary bladder is unremarkable. Gestational sac within the endometrial cavity contains a y olk sac and pole. Heart motion at 182 bpm. [place]-rump length correlates with 9 weeks 2 days gestational age. Estimated date of delivery 07/10/2019. Small amount of fluid is present just peripheral to the right side of the chorion. Right ovary is 2.8 cm with a small follicle and good color and spectral Doppler flow. Left ovary is 3 .3 cm with good color and spectral Doppler flow. IMPRESSION: Single early intrauterine gestation with estimated gestational age 9 weeks 2 days. Small focus of subchorionic hemorrhage.
[2018-12-09 00:19] LABS: Chlamydia by PCR DETECTED (NotDetected); GC by PCR Not Detected (NotDetected)
== END 2018-12-07 20:38 | disposition home or self-care (01) ==
LOC: ERS 18:32
DX: N76.0 Acute vaginitis (principal); N39.0 Urinary tract infection, site not specified; F41.9 Anxiety disorder, unspecified; F31.9 Bipolar disorder, unspecified; F90.9 Attention-deficit hyperactivity disorder, unspecified type
CPT/HCPCS: 36415; 76856; 81003; 81015; 81025; 84702; 86900; 86901; 87480; 87491; 87510; 87591; 87660

== ENCOUNTER 2018-12-14 11:38 | Emergency (ER) | payer MEDICAID | END 2018-12-14 13:06 | disposition home or self-care (01) | LOC: ERS 11:38 | DX: O62.9 Abnormality of forces of labor, unspecified (principal); Z3A.09 9 weeks gestation of pregnancy ==

== ENCOUNTER 2018-12-19 13:45 | Outpatient (CLI) | payer MEDICAID ==
--- NOTE | 2018-12-19 14:31 | ULT ---
Exam: Pelvic ultrasound HISTORY: Pelvic pain, first trimester . COMPARISON: 12/07/2018 TECHNIQUE: Multiple grayscale and color Doppler images were obtained in a transabdominal pelvic ultra sound. Spectral analysis of the Doppler waveforms of the ovaries were performed. FINDINGS: CERVIX: Where visualized demonstrates a grossly normal sonographic appearance. UTERUS: Again noted is evidence of a single intrauterine gestation with a gestational sac identified within the endometrial canal which contains both a pole and a yolk sac. The crown-rump length measures 3.5 cm corresponding to gestational age by ultrasound of 11 weeks. Cardiac Doppler does demo nstrate heart tones with a heart rate of 185 bpm. There has been interval increase in crown-rump length compared to prior study. No free fluid is present. RIGHT OVARY: Not visualized. LEFT OVARY:Normal sonographic appearance. Doppler evaluation does demonstrate arterial flow, but flow was obtained at the periphery of the the left ovary. IMPRESSION: Single intrauterine gestation with heart tones documented. Gestational age by measurement of th e crown-rump length is 11 weeks. There has been interval growth when compared to prior study
== END 2018-12-19 13:46 | disposition home or self-care (01) ==
LOC: BICULT 13:45
PROVIDERS: ATTEND Nurse Practitioner
DX: Z34.81 Encounter for supervision of other normal pregnancy, first trimester (principal); Z3A.11 11 weeks gestation of pregnancy
CPT/HCPCS: 76856; 93976

== ENCOUNTER 2018-12-19 18:34 | Emergency (ER) | payer MEDICAID ==
[2018-12-19] MEDS ORDERED: Acetaminophen 325 MG TAB ONE (19:41)
[2018-12-19] MEDS ORDERED: Metoclopramide HCl 10 MG TAB ONE (20:00)
== END 2018-12-19 20:03 | disposition home or self-care (01) ==
LOC: ERS 18:34
DX: O99.89 Other specified diseases and conditions complicating pregnancy, childbirth and the puerperium (principal); R51 Headache; R10.9 Unspecified abdominal pain; F41.9 Anxiety disorder, unspecified; O99.341 Other mental disorders complicating pregnancy, first trimester; F90.9 Attention-deficit hyperactivity disorder, unspecified type; Z79.899 Other long term (current) drug therapy; Z3A.11 11 weeks gestation of pregnancy
CPT/HCPCS: 76856; 93976; 99284; J8597

== ENCOUNTER 2019-02-15 15:01 | Emergency (ER) | payer MEDICAID ==
[2019-02-15 15:32] LABS: #Eosinphils 0.1 thou/uL (0.0-0.7); #Lymphocytes 1.8 thou/uL (1.20-3.40); #Monocytes 0.5 thou/uL (0.11-0.59); #Neutrophils 5.7 thou/uL (1.40-6.50); %Basophils 0.3 % (0.0-1.0); %Eosinophils 1.3 % (0.0-10.0); %Lymphocytes 22.5 % (21.0-51.0); %Monocytes 6.1 % (0.0-10.0); %Neutrophils 69.8 % (42.0-75.0); Hemoglobin 11.2 g/dL (12.0-16.0); Mean Corpuscular HGB CONC 34.5 g/dL (32.0-36.0); Mean Corpuscular Hemoglobin 30.5 pg (27.0-31.0); Mean Corpuscular Volume 88.2 fL (78.0-98.0); Mean Platelet Volume 7.1 fL (7.4-10.4); Platelet Count 328 thou/uL (130-400); RBC Distribution Width 12.6 % (11.5-14.5); Red Blood Cell (RBC) Count 3.67 mill/uL (4.20-5.40); White Blood Cell (WBC) Count 8.2 thou/uL (4.8-10.8)
[2019-02-15 15:53] LABS: ALT (SGPT) 11 U/L (8-55); AST (SGOT) 12 U/L (5-34); Albumin 3.7 g/dL (3.5-5.0); Alkaline Phosphatase 44 U/L (40-150); Anion Gap 11 mmol/L (10-20); BUN (Urea Nitrogen) 6 mg/dL (7.0-18.7); Bilirubin, Total 0.4 mg/dL (0.2-1.2); Calc. Creatinine Clearance 0 mL/min (70-130); Calcium 9.3 mg/dL (7.8-10.44); Carbon Dioxide 22 mmol/L (22-29); Chloride 103 mmol/L (98-107); Estimated GFR-MDRD Greater than 90; Globulin 2.9 g/dL (2.4-3.5); Glucose 90 mg/dL (70-105); Lipase 18 U/L (8-78); Potassium 3.4 mmol/L (3.5-5.1); Protein, Total 6.6 g/dL (6.0-8.3); Sodium 133 mmol/L (136-145)
[2019-02-15 16:00] LABS: Bilirubin Small (Negative); Blood, Urine Negative (Negative); Clarity CLOUDY (Clear); Glucose, Urine (Dipstick) Negative (Negative); Leukocyte Trace (Negative); Nitrite Negative (Negative); Protein, Urine (Dipstick) Trace mg/dL (Neg-Trace); Specific Gravity, Urine 1.034 (1.002-1.036)
[2019-02-15 16:02] LABS: Bacteria/HPF None Seen HPF (None Seen); RBC/HPF 0-3 HPF (0-3)
[2019-02-15 16:05] LABS: Hyaline Casts/LPF 0-3 HYALINE CAST LPF (0-3 Hyaline); Pathc Cast-AUWi Flag 2.85 (0-2.49)
--- NOTE | 2019-02-15 17:13 | ULT ---
[facility] History: Abdominal cramping Comparison: Ultrasound 12/19/2018 Findings: Real-time grayscale, color, and spectral analysis of the gravid uterus was performed transa bdominal approach. Cervix is closed and measures 3.2 cm in length. The placenta is posterior. heart rate documented at 1 53 bpm. The average ultrasound age is 19 week 1 day with estimated d ate of delivery July 11, 2019. This may weight is 10 ounces, 50th percentile. Biometry: Biparietal diameter: 4.39 cm, 19 week 2 day Head circumference: 16.42 cm, 19 week 1 day Abdominal circumference: 13.72 cm, 19 week 1 day Femur length: 2.91 cm, 19 weeks 0 day The amount of amniotic fluid appears normal. The fetus is in vertex position. Impression: Normal single viable intrauterine .
== END 2019-02-15 17:30 | disposition home or self-care (01) ==
LOC: ERS 15:01
DX: O23.42 Unspecified infection of urinary tract in pregnancy, second trimester (principal); O99.342 Other mental disorders complicating pregnancy, second trimester; F41.9 Anxiety disorder, unspecified; F31.9 Bipolar disorder, unspecified; F90.9 Attention-deficit hyperactivity disorder, unspecified type; Z3A.18 18 weeks gestation of pregnancy
CPT/HCPCS: 36415; 76815; 80053; 81003; 81015; 83690; 85025

== ENCOUNTER 2019-03-26 00:27 | Day surgery (SDC) | payer MEDICAID, OTHER ==
[2019-03-26 00:59] VITALS: BP 109/57; TEMP 98.4; BMI 29.2
[2019-03-26 01:14] LABS: Amnisure Internal Control QC ACCEPTABLE (ACCEPTABLE)
[2019-03-26 01:15] LABS: Amnisure Test No Membranes Rupture (No Rupture)
[2019-03-26] MEDS ORDERED: hydrALAZINE 20 MG/ML VIAL SLOW IVP PRN (01:25)
--- NOTE | 2019-03-26 01:28 | PDOC.LDHP ---
Labor and Delivery H&P Chief complaint: other (white dsch at 24 weeks) HPI: Patient of Dr Ramirez at Time: 012 CC: white vag dsch (no gush of fluid) 23 yo at 24 weeks 3 days here for white DSCH. Arrived by EMS. Denies gusg of flid or VB, no CTX. HX BV in past. no UTI sxs. Has FM. No "dripping" PV. No fevers. Review of Systems: complete ROS performed and as per HPI Current gestational age (weeks): 24 (3 days) Due date: 07/13/19 Dating criteria: last menstrual period Grav: 3 Para: 2 Current complications: none Abnormal US findings: No Current medications: pre-carlos vitamins Previous surgical history: other (Right hand surgey, wisdom teeth, T&A) Allergies/Adverse Reactions: Allergies Allergy/AdvReac Type Severity Reaction Status Date / Time amoxicillin Allergy Swollen Verified 06/29/18 04:58 Lips cephalexin Allergy Verified 06/30/18 05:09 Penicillins Allergy Swollen Verified 06/29/18 04:58 Lips Social history: none - Physical Exam Vital signs reviewed and normal: yes (109/57 69 98.4) General: NAD Heart: RRR Lungs: CTAB Abdomen: gravid Extremeties: no edema [place] contractions every: FHTS pos with doppler at 140s; no CTX evident - Assessment 24 weeks likely leukorrhea of ...amnsiure negative. VP3 sent - Plan Plan: observation in L&D (No evidence labor or VB, I do not suspect LOF, As negative and HX not C/W ROM, spec not performed. VP3 sent and she will follow up results Sunday as scheduled.)
== END 2019-03-26 01:35 | disposition home or self-care (01) ==
LOC: L&D/OP 00:27
PROVIDERS: ATTEND Obstetrics & Gynecology
DX: O99.89 Other specified diseases and conditions complicating pregnancy, childbirth and the puerperium (principal); N89.8 Other specified noninflammatory disorders of vagina; Z88.0 Allergy status to penicillin; Z88.1 Allergy status to other antibiotic agents; Z3A.24 24 weeks gestation of pregnancy
CPT/HCPCS: 84112; 87480; 87510; 87660; 99285

== ENCOUNTER 2019-04-11 18:58 | Day surgery (SDC) | payer OTHER ==
[2019-04-11 19:42] VITALS: BMI 30.7
[2019-04-11 21:08] LABS: FFN Internal QC Analyzer PASS (PASS); FFN Internal QC Cassette PASS (PASS); Fetal Fibronectin POSITIVE (Negative)
== END 2019-04-11 21:20 | disposition home or self-care (01) ==
LOC: L&D/OP 18:58
PROVIDERS: ATTEND Obstetrics & Gynecology
DX: O36.8120 Decreased fetal movements, second trimester, not applicable or unspecified (principal); O99.89 Other specified diseases and conditions complicating pregnancy, childbirth and the puerperium; N89.8 Other specified noninflammatory disorders of vagina; O99.332 Smoking (tobacco) complicating pregnancy, second trimester; F17.200 Nicotine dependence, unspecified, uncomplicated; Z3A.26 26 weeks gestation of pregnancy; Z88.0 Allergy status to penicillin; Z88.1 Allergy status to other antibiotic agents
CPT/HCPCS: 82731; 87480; 87510; 87660; 99285

== ENCOUNTER 2019-05-21 09:56 | Outpatient (CLI) | payer OTHER ==
--- NOTE | 2019-05-21 12:17 | ULT ---
Exam: OB ultrasound limited, follow-up COMPARISON: 02/15/2019 HISTORY: Evaluate growth, DEENA, third trimester FINDINGS: Single viable intrauterine fetus is noted in vertex presentation. Placenta is posterior. heart rate 144 bpm. Amniotic fluid index equals 11.5 cm. Cervical length 4.1 cm Limited anatomy was seen including a four-chamber heart, kidneys, three-vessel cord, spine, and lips and nose region biometry: BPD: 7.6 cm--30 weeks 4 days Head circumference: 29.5 cm--32 weeks 5 days Abdominal circumference: 25.5 cm--29 weeks 5 days Femur length: 6.0 cm--31 weeks 1 day IMPRESSION: Gestational age average 31 weeks 1 day ANN 07/22/2019 Estimated weight 1586 g There is evidence for 3 weeks discrepancy between head circumference and abdominal circumference.
== END 2019-05-21 09:57 | disposition home or self-care (01) ==
LOC: BICULT 09:56
PROVIDERS: ATTEND Obstetrics & Gynecology
DX: Z34.83 Encounter for supervision of other normal pregnancy, third trimester (principal); Z3A.31 31 weeks gestation of pregnancy
CPT/HCPCS: 76816

== ENCOUNTER 2019-06-14 11:50 | Inpatient (IN) | payer OTHER ==
[~2019-06-14 11:50] MED LIST: Bupivacaine/Epinephrine 0.25% 30 ML VIAL ONE; ePHEDrine/0.9% NaCl/PF SYRINGE 50 mg/10 ml ONE
[2019-06-14 11:58] VITALS: BMI 30.3
[2019-06-14] MEDS ORDERED: hydrALAZINE 20 MG/ML VIAL SLOW IVP PRN ×2 (12:45→17:27)
--- NOTE | 2019-06-14 13:13 | PDOC.FPROB ---
FMR OB H&P: Medications - Current Home Medications: Medication Instructions Recorded Confirmed Type Vit 10/Iron/Folic/Dha 1 tablet PO DAILY 11/01/16 06/29/18 History [Vitafol-OB+DHA Combo Pack] Allergies/Adverse Reactions: Allergies Allergy/AdvReac Type Severity Reaction Status Date / Time amoxicillin Allergy Swollen Verified 06/29/18 04:58 Lips cephalexin Allergy Verified 06/30/18 05:09 Penicillins Allergy Swollen Verified 06/29/18 04:58 Lips FMR OB H&P: A/P Discussion: Date/Time: 06/14/19 1312 This H&P was discussed with [] and [] who agree with the above documentation and plan.
[2019-06-14] MEDS ORDERED: Promethazine HCl 25 MG/ML VIAL ONE (13:19)
[2019-06-14] MEDS: Betamet Acet/Betamet Na Ph 30 MG/5 ML VIAL IM SCH (13:28)
[2019-06-14] MEDS ORDERED: Morphine 10 MG/ML VIAL IM SCH (13:30)
[2019-06-14] MEDS ORDERED: Lactated Ringer's 1,000 ML IV SCH (13:30)
[2019-06-14] MEDS ORDERED: Morphine 4 MG/ML VIAL SLOW IVP SCH (13:30)
[2019-06-14] MEDS ORDERED: Promethazine HCl 12.5 MG in Sodium Chloride 0.9% 50 ML IVPB SCH (13:30)
[2019-06-14] MEDS ORDERED: Vancomycin HCl 1.5 GM in Sodium Chloride 0.9% 250 ML 300 ML IVPB SCH (17:00)
[2019-06-14] MEDS ORDERED: Vancomycin HCl 1.5 GM in Sodium Chloride 0.9% 250 ML 250 ML IVPB SCH (17:00)
[2019-06-14] MEDS ORDERED: Ibuprofen 800 MG TAB PO PRN (17:27)
[2019-06-14] MEDS ORDERED: Butorphanol Tartrate 1 MG/ML VIAL SLOW IVP PRN (17:27)
[2019-06-14] MEDS ORDERED: Lidocaine 1% (PF) 30 ML VIAL SC PRN (17:27)
[2019-06-14] MEDS ORDERED: Acetaminophen 500 MG TAB PO PRN (17:27)
[2019-06-14] MEDS ORDERED: Ondansetron PF 4 MG/2 ML Vial IVP PRN ×2 (17:27→20:18)
[2019-06-14] MEDS ORDERED: NS / Oxytocin 40 units/1000ml 1,000 ML IV PRN (17:27)
[2019-06-14] MEDS ORDERED: Promethazine HCl 25 MG/ML VIAL IM PRN ×2 (17:27→20:18)
[2019-06-14] MEDS: Lactated Ringer's 1,000 ML IV SCH (17:39)
--- NOTE | 2019-06-14 17:43 | PDOC.FPROB ---
FMR OB H&P: HPI - History of Present Illness Chief Complaint: contractions Indentification: 23 year old at 35.6 wks History of Present Illness: 23 year old at 35.6 wks presents with contractions since last night. She states that around 9:00 AM this morning, they have become more intense and more frequent, occurring every 2-3 minutes. Patient was positive for chlamydia during this , but she had a negative LOCO on 12/30/2018. Patient reports no complications in current , but this is a short interval. She states that she drinks 4-5 large Marcus cups full of water each day. She denies any recent diarrhea, vomiting, LoF, vaginal bleeding. She endorses good movement. She endorses nausea but states the nausea has been present most of . 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: Chlamydia in current with negative LOCO 12/30/2018 - Surgical History Sx History: Tonsillectomy, Adenoid removal, Right hand surgery - Social History Social History: Endorses marijuana use before she knew she was but states she has since stopped - Family History Family History: FH of DM and CAD FMR OB H&P: Medications - Current Home Medications: Medication Instructions Recorded Confirmed Type Vit 10/Iron/Folic/Dha 1 tablet PO DAILY 11/01/16 06/29/18 History [Vitafol-OB+DHA Combo Pack] Allergies/Adverse Reactions: Allergies Allergy/AdvReac Type Severity Reaction Status Date / Time amoxicillin Allergy Swollen Verified 06/29/18 04:58 Lips cephalexin Allergy Verified 06/30/18 05:09 Penicillins Allergy Swollen Verified 06/29/18 04:58 Lips FMR OB H&P: ROS - Review of Systems General: denies: fever/chills, weight/appetite/sleep changes Eyes: denies: double vision ENT: denies: nasal congestion, sore throat Cardiovascular: denies: chest pain, palpitation, edema Respiratory: denies: cough, congestion, shortness of breath Gastrointestinal: reports: abdominal pain, nausea. denies: vomiting Genitourinary (Female): reports: contractions, vaginal pressure. denies: dysuria, vaginal discharge, vaginal pain, vaginal bleeding Musculoskeletal: denies: pain, stiffness, tenderness Neurologic: denies: numbness, syncope, seizures Integumentary: denies: itching, rash, lesions Hematologic/Lymphatic: denies: prolonged or excessive bleeding, enlarged lymph nodes Psychological: denies: depression, anxiety FMR OB H&P: Vital Signs - Maternal Vital signs: BP: 100/57 Pulse: 81 Afebrile 100% O2 on RA - Heart Tones Baseline: 140 Variability: moderate Acceleration: present Deceleration: absent Category: category 1 [place] contractions every: q3-4 min FMR OB H&P: Physical Exam - Physical Exam General: NAD, awake, alert and oriented HEENT: MMM, grossly normal vision, grossly normal hearing Heart: RRR, pulses present, no edema General: CTAB, no wheezing Abdomen: soft, gravid, non-tender Musculoskeletal: pulses present, FROM in all four extremities Neurological: no tremor, no focal deficit Skin: no rash, capillary refill <2 seconds Lymphatic: no unusual bruising or bleeding, no purpura Psychiatric: intact recent and remote memory, normal mood and affect - Pelvic Exam SVE: /-2, soft Presentation: Cephalic FMR OB H&P: A/P - Problem List (1) contractions Current Visit: Yes Status: Acute Code(s): O47.9 - FALSE LABOR, UNSPECIFIED (2) Current Visit: Yes Status: Acute Qualifiers: Weeks of gestation: 35 weeks Qualified Code(s): Z3A.35 - 35 weeks gestation of Disposition: 23 year old at 35.6 wks by 8.3 wk sono presents with contractions q2-3 minutes sIUP, - 35.6 wks by 8.3 wk sono; ANN 07/13/2019 - Initial cervical exam 2 - Patient has made gradual cervical change, she is now 4/60/-2 and continues to contract q2-3 min - s/p 1L LR bolus and maintenance IVF at 125 mL/hr - A+, antibody neg - Rubella immune - Pain control labor - Gradual cervical change; 2/50/-2 on presentation with cervical change to 4/60/ -2 over the course of several hours - Betamethasone x1 given, will repeat dose in 24 hours if patient does not deliver before that time - Continues to have contractions q2-3 minutes - GC/CT pending, VP3 negative - GBS done 06/09 and was negative as reported by Dr. Ramirez after review of records - Speculum exam with moderate amount of lua/white vaginal discharge, no clear fluid or pooling of fluid Hx chlamydia in - LOCO negative on - GC/CT pending Marijuana use in - Positive in 1T Dispo: Due to cervical change and continued contractions, will admit to L&D for labor. Patient s/p 1 dose of betamethasone. GBS negative, done 2018. Expectant management. Will notify NICU. Report given to Dr. Ramirez by nursing staff. Plan for Dr. Ramirez to resume care at this time. Discussion: Date/Time: 06/14/19 5096 This H&P was discussed with Dr. Hughes who agrees with the above documentation and plan. Signature: Chela Fritz, DO PGY-3
[2019-06-14 18:08] LABS: Hemoglobin 13.3 g/dL (12.0-16.0); Mean Corpuscular HGB CONC 35.2 g/dL (32.0-36.0); Mean Corpuscular Hemoglobin 32.3 pg (27.0-31.0); Mean Corpuscular Volume 91.9 fL (78.0-98.0); Mean Platelet Volume 8.3 fL (7.4-10.4); Platelet Count 242 thou/uL (130-400); RBC Distribution Width 12.3 % (11.5-14.5); White Blood Cell (WBC) Count 10.6 thou/uL (4.8-10.8)
[2019-06-14] MEDS ORDERED: Fentanyl 4 mcg/Bup 0.1% Cadd 100 ML ONE (18:33)
[2019-06-14 18:45] LABS: HBSAg Index 0.14 S/CO (0-0.99); Hep B Surf Ag Non-Reactive S/CO (NonReactive)
[2019-06-14 18:46] LABS: Syphilis Antibody Nonreactive (Nonreactive); Syphilis Antibody Index 0.04 S/CO (<1.00 Non-Reactive)
--- NOTE | 2019-06-14 18:48 | PDOC.EVN ---
Event Note - Event Note Event Note: Dr Ramirez has reported GBS results as neg. Will d/c vancomycin
[2019-06-14] MEDS ORDERED: ePHEDrine/0.9% NaCl/PF SYRINGE 50 mg/10 ml SLOW IVP PRN (20:18)
[2019-06-14] MEDS ORDERED: Naloxone HCl 0.4 mg/ml Vial IVP PRN ×2 (20:18)
[2019-06-14] MEDS ORDERED: diphenhydrAMINE 50 MG/ML VIAL IVP PRN (20:18)
[2019-06-14] MEDS ORDERED: Lactated Ringer's 500 ML IV PRN (20:18)
[2019-06-14] MEDS ORDERED: Communication Order-Pharmacy FS SCH (20:30)
[2019-06-14] MEDS ORDERED: Fentanyl 4 mcg/Bupivacaine 0.1% Cassette 100 ML EPIDURAL SCH (20:30)
[2019-06-15] MEDS ORDERED: NS / Oxytocin 40 units/1000ml 1,000 ML ONE (03:19)
[2019-06-15] MEDS ORDERED: Bisacodyl 10 MG SUPP PR PRN (04:50)
[2019-06-15] MEDS ORDERED: hydrALAZINE 20 MG/ML VIAL SLOW IVP PRN (04:50)
[2019-06-15] MEDS ORDERED: Benzocaine-Menthol 82.5 ML CAN TOP PRN (04:50)
[2019-06-15] MEDS ORDERED: Promethazine HCl 25 MG/ML VIAL IM PRN (04:50)
[2019-06-15] MEDS ORDERED: Ondansetron PF 4 MG/2 ML Vial IVP PRN (04:50)
[2019-06-15] MEDS ORDERED: Milk Of Magnesia 30 ML UDCUP PO PRN (04:50)
[2019-06-15] MEDS ORDERED: Preparation H Ointment 28 GM TUBE PR PRN (04:50)
[2019-06-15] MEDS ORDERED: Lanolin Ointment 7 GM TUBE TOP PRN (04:50)
[2019-06-15] MEDS ORDERED: NS / Oxytocin 40 units/1000ml 1,000 ML IV SCH (05:00)
--- NOTE | 2019-06-15 05:05 | OP ---
DATE OF PROCEDURE: 06/15/2019 PREOPERATIVE DIAGNOSES: 1. A 23-year-old, G3, P2-0-0-2, who presented at 35 and 6, with complaint of regular contractions and pain. 2. Group B Streptococcus negative. 3. History of chlamydia this was treated and negative test of cure. 4. labor. POSTOPERATIVE DIAGNOSES: 1. A 23-year-old, G3, P2-0-0-2, who presented at 35 and 6, with complaint of regular contractions and pain. 2. Group B Streptococcus negative. 3. History of chlamydia this was treated and negative test of cure. 4. labor. 5. Live-born male infant with Apgars of 9 and 9 at 1 and 5 minutes respectively. PROCEDURE PERFORMED: Spontaneous vaginal delivery. ANESTHESIA: Epidural. ESTIMATED BLOOD LOSS: 25 mL. SPECIMENS: Placenta was sent for pathology evaluation. CLINICAL HISTORY: This patient is a 23-year-old, G3, P2-0-0-2, who presented with complaint of regular contractions that were painful on 06/14 in the mid afternoon. The patient was evaluated in triage and had a category 1 tracing. She progressed with cervical dilation and was admitted. She was given steroids for prematurity and was able to get one dose. The patient requested an epidural for maternal analgesia and this was placed with adequate anesthesia. The patient continued to progress on her own and cisco network engineer the next day was noted to be 7 to 8 cm with a bulging bag. An amniotomy was performed with copious clear fluid and the patient with complete cervical dilation and ready to push shortly thereafter. DESCRIPTION OF PROCEDURE: With good maternal effort and coaching, the patient was able to push the vertex to the introitus. She delivered the vertex with JOON position. The anterior shoulder followed by the posterior shoulder followed by the remainder of the infant's body was delivered. Cord was doubly clamped and cut. The infant cried a vigorous cry spontaneously and continued to show good respiratory effort. Cord blood was obtained and then the placenta was delivered spontaneously intact with a three-vessel cord. Shortly thereafter, the placenta was sent for evaluation for pathology. The uterine fundus was noted to be firm and well below the umbilicus. Exploration of the introitus, vagina, and cervix noted no lacerations. The patient was cleansed and put in the recovery position with her infant. Again, the infant was a live born male born at 36 weeks with Apgars of 9 and 9 at 1 and 5 minutes respectively. Weight was not available at the time of dictation. There were no other issues surrounding this delivery. Job ID: [id number]
[2019-06-15] MEDS: Prenatal Vitamin 1 TAB PO SCH (08:43)
[2019-06-15] MEDS: Ibuprofen 800 MG TAB PO SCH ×3 (08:44→21:09)
[2019-06-15] MEDS: Docusate Calcium (SURFAK) 240 MG CAP PO SCH ×2 (08:44→21:09)
[2019-06-15] MEDS ORDERED: Adacel (T-DAP) 0.5 ML SYRINGE IM ONE (09:00)
[2019-06-15] MEDS: Ferrous Sulfate 325 MG TAB PO SCH ×2 (15:13→18:00)
[2019-06-15] MEDS: Lactated Ringer's 1,000 ML IV SCH ×2 (16:01→18:01)
[2019-06-15] MEDS: Betamet Acet/Betamet Na Ph 30 MG/5 ML VIAL IM SCH (16:02)
[2019-06-15] MEDS: Acetaminophen 325 MG TAB PO PRN (20:04)
[2019-06-15 21:36] LABS: Chlamydia by PCR Not Detected (NotDetected); GC by PCR Not Detected (NotDetected)
[2019-06-16] MEDS: Ibuprofen 800 MG TAB PO SCH ×3 (05:05→22:14)
[2019-06-16] MEDS: Lactated Ringer's 1,000 ML IV SCH ×3 (05:14→17:24)
[2019-06-16] MEDS: Ferrous Sulfate 325 MG TAB PO SCH ×2 (07:26→17:24)
[2019-06-16] MEDS: Docusate Calcium (SURFAK) 240 MG CAP PO SCH ×2 (08:21→22:13)
[2019-06-16] MEDS: Prenatal Vitamin 1 TAB PO SCH (08:21)
[2019-06-16] MEDS: Acetaminophen 325 MG TAB PO PRN ×2 (08:21→18:34)
[2019-06-16] MEDS: Betamet Acet/Betamet Na Ph 30 MG/5 ML VIAL IM SCH (13:03)
[2019-06-17] MEDS: Lactated Ringer's 1,000 ML IV SCH ×2 (04:26→13:17)
[2019-06-17] MEDS: Ibuprofen 800 MG TAB PO SCH ×2 (05:35→13:29)
[2019-06-17 07:57] VITALS: BP 108/57; TEMP 98.5
[2019-06-17] MEDS: Ferrous Sulfate 325 MG TAB PO SCH (08:21)
[2019-06-17] MEDS: Docusate Calcium (SURFAK) 240 MG CAP PO SCH (08:21)
[2019-06-17] MEDS: Prenatal Vitamin 1 TAB PO SCH (08:21)
[2019-06-17] MEDS: Betamet Acet/Betamet Na Ph 30 MG/5 ML VIAL IM SCH (13:17)
== END 2019-06-17 13:35 | disposition home or self-care (01) | DRG 807 ==
LOC: L&D/OP 11:50 → L&D 18:56 → 3SW 06-15 06:58
PROVIDERS: ADMIT Obstetrics & Gynecology; ATTEND Obstetrics & Gynecology
PROC: 10E0XZZ Delivery of Products of Conception, External Approach (ICD-10-PCS; principal; 2019-06-15)
PROC: 10907ZC Drainage of Amniotic Fluid, Therapeutic from Products of Conception, Via Natural or Artificial Opening (ICD-10-PCS; 2019-06-15)
DX: O60.14X0 Preterm labor third trimester with preterm delivery third trimester, not applicable or unspecified (principal); Z37.0 Single live birth; Z3A.35 35 weeks gestation of pregnancy; Z86.19 Personal history of other infectious and parasitic diseases
CPT/HCPCS: 36415; 51702; 85027; 86780; 86850; 86900; 86901; 87340; 87480; 87491; 87510; 87591; 87660; 88307; 99285; J0702; J2270; J2550; J3370; J7050

== ENCOUNTER 2019-10-02 07:23 | Emergency (ER) | payer OTHER, SELFPAY ==
[2019-10-02 08:28] LABS: Bilirubin Negative (Negative); Blood, Urine Trace (Negative); Clarity Clear (Clear); Glucose, Urine (Dipstick) Normal (Negative); Leukocyte 75 Leu/uL (Negative); Nitrite Negative (Negative); Protein, Urine (Dipstick) 10 mg/dL (Neg-Trace); RBC/HPF 0-3 HPF (0-3); Squamous Epithelial 0-3 HPF (0-3); Urobilinogen Normal mg/dL (Less than 2)
[2019-10-02 08:50] LABS: Bacteria/HPF 1+ HPF (None Seen); Sperm/HPF Rare HPF (None Seen)
[2019-10-02 09:38] LABS: Pregnancy Test - Urine (BHCG) Negative (Negative); Pregu Control Background? CLEAR/WHITE (CLR/WHITE); Pregu Control Bar Appear? YES (CONTROL BAR); Specific Gravity 1.031 (1.002-1.036)
== END 2019-10-02 10:30 | disposition home or self-care (01) ==
LOC: ERS 07:23
DX: N94.10 Unspecified dyspareunia (principal); N39.0 Urinary tract infection, site not specified; D64.9 Anemia, unspecified; F90.9 Attention-deficit hyperactivity disorder, unspecified type; F31.9 Bipolar disorder, unspecified; F41.9 Anxiety disorder, unspecified
CPT/HCPCS: 81003; 81015; 81025; 99284

== ENCOUNTER 2020-01-14 06:54 | Emergency (ER) | payer SELFPAY ==
[2020-01-14] MEDS ORDERED: Ondansetron PF 4 MG/2 ML Vial ONE (07:28)
[2020-01-14 07:45] LABS: Bilirubin Negative (Negative); Blood, Urine 3+ (Negative); Clarity Clear (Clear); Glucose, Urine (Dipstick) Normal (Negative); Leukocyte 25 Leu/uL (Negative); Nitrite Negative (Negative); Protein, Urine (Dipstick) Negative (Neg-Trace); RBC/HPF 0-3 HPF (0-3); Squamous Epithelial 0-3 HPF (0-3); Urobilinogen Normal mg/dL (Less than 2); WBC/HPF 0-3 HPF (0-3)
[2020-01-14 07:50] LABS: #Eosinphils 0.1 thou/uL (0.0-0.7); #Lymphocytes 2.2 thou/uL (1.20-3.40); #Monocytes 0.6 thou/uL (0.11-0.59); #Neutrophils 3.8 thou/uL (1.40-6.50); %Basophils 0.5 % (0.0-1.0); %Eosinophils 2.2 % (0.0-10.0); %Lymphocytes 32.5 % (21.0-51.0); %Monocytes 8.5 % (0.0-10.0); %Neutrophils 56.3 % (42.0-75.0); Hemoglobin 12.9 g/dL (12.0-16.0); Mean Corpuscular HGB CONC 33.3 g/dL (32.0-36.0); Mean Corpuscular Volume 90.1 fL (78.0-98.0); Mean Platelet Volume 7.5 fL (7.4-10.4); Platelet Count 268 thou/uL (130-400); RBC Distribution Width 11.3 % (11.5-14.5); Red Blood Cell (RBC) Count 4.28 mill/uL (4.20-5.40); White Blood Cell (WBC) Count 6.7 thou/uL (4.8-10.8)
[2020-01-14 07:55] LABS: Bacteria/HPF 1+ HPF (None Seen)
[2020-01-14 08:11] LABS: Sperm/HPF Rare HPF (None Seen)
[2020-01-14] MEDS ORDERED: Ketorolac Tromethamine 30 MG/ML VIAL ONE (08:32)
--- NOTE | 2020-01-14 10:41 | ULT ---
PELVIC ULTRASOUND INCLUDING TRANSABDOMINAL AND TRANSVAGINAL AND VASCULAR DUPLEX WITH COLOR AND SPECTR AL DOPPLER IMAGING: COMPARISON: 12/19/2018. HISTORY: Left-sided pelvic pain and left lower quadrant pain. FINDINGS: Exam includes transabdominal, transvaginal, and vascular duplex with color and spectral Doppler imagi ng. The uterus measures 9.6 x 4.9 x 5.5 cm. The endometrium is thickened at 2.0 cm. No evidence for int rauterine gestational sac. The right ovary is visualized and appears normal measuring 1.3 x 2.4 x 1. 6 cm. The left ovary was not demonstrated because of gas. No pelvic fluid collection. IMPRESSION: Somewhat thickened echogenic endometrium. Otherwise, unremarkable-appearing uterus and right ovary. A left ovary was not demonstrated. No abnormal pelvic fluid collection or other acute process. POS: [facility]
== END 2020-01-14 10:20 | disposition home or self-care (01) ==
LOC: ERS 06:54
DX: M54.5 Low back pain (principal); R10.32 Left lower quadrant pain; R11.2 Nausea with vomiting, unspecified; F41.9 Anxiety disorder, unspecified; F31.9 Bipolar disorder, unspecified; F90.9 Attention-deficit hyperactivity disorder, unspecified type
CPT/HCPCS: 76856; 81003; 81015; 84702; 85025; 87086; 96374; 96375; J1885; J2405

== ENCOUNTER 2020-05-29 13:09 | Emergency (ER) | payer SELFPAY ==
[2020-05-29 14:18] LABS: Bilirubin Negative (Negative); Blood, Urine Negative (Negative); Clarity Turbid (Clear); Glucose, Urine (Dipstick) Normal (Negative); Ketone, Urine Negative (Negative); Leukocyte 500 Leu/uL (Negative); Nitrite Negative (Negative); Protein, Urine (Dipstick) 20 mg/dL (Neg-Trace); Specific Gravity, Urine 1.026 (1.002-1.036); Squamous Epithelial 21-50 HPF (0-3); Urobilinogen Normal mg/dL (Less than 2); WBC/HPF Greater than 50 HPF (0-3); pH, Urine 5.5 (5.0-9.0)
[2020-05-29 14:20] LABS: Pregnancy Test - Urine (BHCG) Negative (Negative); Pregu Control Background? CLEAR/WHITE (CLR/WHITE); Pregu Control Bar Appear? YES (CONTROL BAR); Specific Gravity 1.026 (1.002-1.036)
[2020-05-29 14:26] LABS: Bacteria/HPF 2+ HPF (None Seen)
[2020-05-29] MEDS ORDERED: Azithromycin 250 MG TAB ONE (14:31)
[2020-05-29] MEDS ORDERED: Ondansetron ODT 4 MG TAB ONE (14:31)
[2020-05-29] MEDS ORDERED: metroNIDAZOLE 250 MG TAB ONE (14:31)
[2020-05-30 17:04] LABS: Chlamydia by PCR DETECTED (NotDetected); GC by PCR DETECTED (NotDetected)
== END 2020-05-29 15:00 | disposition home or self-care (01) ==
LOC: ERS 13:09
DX: N39.0 Urinary tract infection, site not specified (principal); A64 Unspecified sexually transmitted disease; D64.9 Anemia, unspecified; F41.9 Anxiety disorder, unspecified; F31.9 Bipolar disorder, unspecified; F90.9 Attention-deficit hyperactivity disorder, unspecified type
CPT/HCPCS: 81003; 81015; 81025; 87480; 87491; 87510; 87591; 87660; 99283; Q0162

== ENCOUNTER 2020-08-14 14:52 | Emergency (ER) | payer SELFPAY ==
[~2020-08-14 14:52] MED LIST changes: -Bupivacaine/Epinephrine 0.25% 30 ML VIAL ONE; +Iopamidol-370 76% 500 ML 1 ML ONE; -ePHEDrine/0.9% NaCl/PF SYRINGE 50 mg/10 ml ONE
[2020-08-14 15:31] LABS: #Lymphocytes 1.3 thou/uL (1.20-3.40); #Neutrophils 10.3 thou/uL (1.40-6.50); %Basophils 0.1 % (0.0-1.0); %Eosinophils 0.3 % (0.0-10.0); %Lymphocytes 10.5 % (21.0-51.0); %Monocytes 7.8 % (0.0-10.0); %Neutrophils 81.2 % (42.0-75.0); Hemoglobin 13.4 g/dL (12.0-16.0); Mean Corpuscular HGB CONC 34.5 g/dL (32.0-36.0); Mean Corpuscular Hemoglobin 31.2 pg (27.0-31.0); Mean Corpuscular Volume 90.2 fL (78.0-98.0); Mean Platelet Volume 7.6 fL (7.4-10.4); Platelet Count 254 thou/uL (130-400); RBC Distribution Width 11.5 % (11.5-14.5); Red Blood Cell (RBC) Count 4.29 mill/uL (4.20-5.40); White Blood Cell (WBC) Count 12.7 thou/uL (4.8-10.8)
[2020-08-14 15:52] LABS: ALT (SGPT) 10 U/L (8-55); AST (SGOT) 13 U/L (5-34); Albumin 4.4 g/dL (3.5-5.0); Alkaline Phosphatase 68 U/L (40-110); Anion Gap 13 mmol/L (10-20); BUN (Urea Nitrogen) 9 mg/dL (7.0-18.7); Bilirubin, Total 0.5 mg/dL (0.2-1.2); Calc. Creatinine Clearance 0 mL/min (70-130); Calcium 9.2 mg/dL (7.8-10.44); Carbon Dioxide 26 mmol/L (22-29); Chloride 104 mmol/L (98-107); Globulin 3.2 g/dL (2.4-3.5); Glucose 96 mg/dL (70-105); Lipase 16 U/L (8-78); Potassium 3.8 mmol/L (3.5-5.1); Protein, Total 7.6 g/dL (6.0-8.3); Sodium 139 mmol/L (136-145)
[2020-08-14] MEDS ORDERED: Morphine 4 MG/ML VIAL ONE (16:03)
[2020-08-14] MEDS ORDERED: Ketorolac Tromethamine 30 MG/ML VIAL ONE (16:04)
[2020-08-14] MEDS ORDERED: Ondansetron PF 4 MG/2 ML Vial ONE (16:04)
[2020-08-14 16:11] LABS: Bacteria/HPF None Seen HPF (None Seen); Bilirubin Negative (Negative); Blood, Urine 3+ (Negative); Clarity Clear (Clear); Glucose, Urine (Dipstick) Normal (Negative); Ketone, Urine Negative (Negative); Leukocyte Negative Leu/uL (Negative); Nitrite Negative (Negative); Protein, Urine (Dipstick) Negative (Neg-Trace); Specific Gravity, Urine 1.015 (1.002-1.036); Urobilinogen Normal mg/dL (Less than 2)
[2020-08-14 16:12] LABS: Pregnancy Test - Urine (BHCG) Negative (Negative)
[2020-08-14 16:13] LABS: Pregu Control Background? CLEAR/WHITE (CLR/WHITE); Pregu Control Bar Appear? YES (CONTROL BAR); Specific Gravity 1.015 (1.002-1.036)
[2020-08-14 16:13] LABS: BHCG - Serum Negative (NEGATIVE); Pregs Control Background? CLEAR/WHITE (CLR/WHITE); Pregs Control Bar Appear? YES (CONTROL BAR)
[2020-08-14] MEDS ORDERED: Acetaminophen 325 MG TAB ONE (16:28)
--- NOTE | 2020-08-14 16:32 | RAD ---
EXAM: CHEST ONE VIEW HISTORY: Fever. Left flank pain. COMPARISON: 03/07/2016 FINDINGS: The cardiac silhouette and pulmonary vasculature are within normal limits. The lungs are clear. The o sseous structures are intact. IMPRESSION: No acute cardiopulmonary process.
[2020-08-14] MEDS ORDERED: diphenhydrAMINE 50 MG/ML VIAL ONE (17:01)
[2020-08-14] MEDS ORDERED: methylPREDNISolone Sod Succ/PF 125 MG/2 ML VIAL ONE (17:01)
--- NOTE | 2020-08-14 17:06 | CT ---
CT ABDOMEN AND PELVIS WITH IV CONTRAST 08/14/2020 CLINICAL INFORMATION: Abdominal pain in generalized malaise. Patient states left lower and left upper quadrant abdominal pa in. History of kidney infections. COMPARISON: 05/07/2020 Technique: Multiple contiguous axial CT images are obtained through the abdomen and pelvis with IV contrast. Cor onal reformatted images are provided. FINDINGS: Lower Chest: Lung bases are clear. Vessels: Abdominal aorta is normal in caliber. Abdomen: Portal vein:Patent Gallbladder: Within normal limits for CT imaging. Liver: within normal limits. Spleen: within normal limits. Pancreas: within normal limits. Adrenals: within normal limits. Kidneys: 11 mm low-density focus is seen in the posterior aspect superior pole left kidney. This was not appreciated on the study on 05/07/2020. Exact etiology is uncertain. This could be related to focal area of pyelonephritis given short interval change. There is no hydronephrosis, and the kidneys otherwise demonstrate normal appearance bilaterally. Bowel: Small to moderate amount retained fecal material seen throughout the colon. Loops of small bow el are normal in caliber. Appendix: The appendix is visualized and normal in caliber. Peritoneum: No ascites or free air; no fluid collection. Mesentery and Retroperitoneum: No enlarged mesenteric or retroperitoneal lymph nodes. Abdominal Wall: Small fat-containing umbilical hernia again noted. Pelvis: Reproductive Organs: No pelvic masses. Bladder: within normal limits. Bones: No suspicious lytic or sclerotic osseous lesions. IMPRESSION: 1. Small ill-defined 11 mm low-density focus in the superior pole left kidney. This does represent an interval change when compared to the prior exam. There is no perinephric stranding seen on the left. Exact etiology for this structure is uncertain, but given short interval change, focal area of pyelonephritis would be difficult to entirely exclude. Correlation with urinalysis is recommended. Kidneys otherwise demonstrate a normal CT appearance bilaterally. 2. Constipation.
== END 2020-08-14 19:06 | disposition home or self-care (01) ==
LOC: ERS 14:52
DX: N12 Tubulo-interstitial nephritis, not specified as acute or chronic (principal)
CPT/HCPCS: 36415; 71045; 74177; 80053; 81003; 81015; 81025; 83605; 83690; 84703; 85025; 87040; 87086; 96365; 96366; 96375; J1200; J1885; J1956; J2270; J2405; J2930; Q9967

== ENCOUNTER 2020-11-03 10:51 | Emergency (ER) | payer SELFPAY ==
[2020-11-03] MEDS ORDERED: Ketorolac Tromethamine 30 MG/ML VIAL ONE (12:07)
== END 2020-11-03 12:50 | disposition home or self-care (01) ==
LOC: ERS 10:51
DX: M25.461 Effusion, right knee (principal); D50.9 Iron deficiency anemia, unspecified; I10 Essential (primary) hypertension
CPT/HCPCS: 96372; J1885

== ENCOUNTER 2020-12-10 13:50 | Emergency (ER) | payer SELFPAY ==
[2020-12-10] MEDS ORDERED: Ketorolac Tromethamine 30 MG/ML VIAL ONE (14:28)
[2020-12-10] MEDS ORDERED: Metoclopramide HCl 10 MG/2 ML VIAL ONE (14:28)
[2020-12-10] MEDS ORDERED: diphenhydrAMINE 50 MG/ML VIAL ONE (14:28)
[2020-12-10 14:54] LABS: Bacteria/HPF None Seen HPF (None Seen); Bilirubin Negative (Negative); Blood, Urine Negative (Negative); Clarity Clear (Clear); Glucose, Urine (Dipstick) Normal (Negative); Ketone, Urine Negative (Negative); Leukocyte 25 Leu/uL (Negative); Nitrite Negative (Negative); Protein, Urine (Dipstick) Negative (Neg-Trace); RBC/HPF 0-3 HPF (0-3); Squamous Epithelial 0-3 HPF (0-3); Urobilinogen Normal mg/dL (Less than 2); WBC/HPF 0-3 HPF (0-3); pH, Urine 6.5 (5.0-9.0)
[2020-12-10 14:57] LABS: Pregnancy Test - Urine (BHCG) Negative (Negative); Pregu Control Background? CLEAR/WHITE (CLR/WHITE); Pregu Control Bar Appear? YES (CONTROL BAR)
[2020-12-10 15:01] LABS: Medtox Reader # READER 1; THC/Cannabinoid Screen Detected (NotDetected)
[2020-12-10 15:02] LABS: Amphetamine Not Detected (NotDetected); Barbiturates Screen Not Detected (NotDetected); Benzodiazepine Screen Not Detected (NotDetected); Cocaine Metabolite Screen Not Detected (NotDetected); Medtox Control Line Valid? VALID (VALID); Methadone Not Detected (NotDetected); Methamphetamine Not Detected (NotDetected); Opiate Screen Not Detected (NotDetected); Oxycodone Screen Not Detected (NotDetected); Phencyclidine (PCP) Not Detected (NotDetected); Tricyclic Screen Not Detected (NotDetected)
[2020-12-10 15:06] LABS: #Basophils 0.1 thou/uL (0.0-0.2); #Lymphocytes 2.3 thou/uL (1.20-3.40); #Monocytes 0.9 thou/uL (0.11-0.59); #Neutrophils 9.4 thou/uL (1.40-6.50); %Basophils 0.9 % (0.0-1.0); %Eosinophils 0.3 % (0.0-10.0); %Lymphocytes 17.7 % (21.0-51.0); %Monocytes 7.1 % (0.0-10.0); Hemoglobin 14.3 g/dL (12.0-16.0); Mean Corpuscular HGB CONC 32.5 g/dL (32.0-36.0); Mean Corpuscular Hemoglobin 29.2 pg (27.0-31.0); Mean Platelet Volume 7.5 fL (7.4-10.4); Platelet Count 356 thou/uL (130-400); RBC Distribution Width 11.8 % (11.5-14.5); Red Blood Cell (RBC) Count 4.88 mill/uL (4.20-5.40); White Blood Cell (WBC) Count 12.7 thou/uL (4.8-10.8)
[2020-12-10 15:29] LABS: ALT (SGPT) 12 U/L (8-55); AST (SGOT) 20 U/L (5-34); Acetaminophen Less than 6.0 mcg/mL (10.0-30.0); Albumin 4.5 g/dL (3.5-5.0); Alcohol Less than 10 mg/dL (Less than 10); Alkaline Phosphatase 93 U/L (40-110); Anion Gap 16 mmol/L (10-20); BUN (Urea Nitrogen) 11 mg/dL (7.0-18.7); Bilirubin, Total 0.5 mg/dL (0.2-1.2); Calc. Creatinine Clearance 0 mL/min (70-130); Calcium 9.9 mg/dL (7.8-10.44); Carbon Dioxide 21 mmol/L (22-29); Chloride 104 mmol/L (98-107); Globulin 3.7 g/dL (2.4-3.5); Glucose 93 mg/dL (70-105); Potassium 4.4 mmol/L (3.5-5.1); Protein, Total 8.2 g/dL (6.0-8.3); Salicylate Less than 8.0 mg/dL (15.0-30.0); Sodium 137 mmol/L (136-145)
[2020-12-10] MEDS ORDERED: Haloperidol Lactate 5 MG/ML VIAL ONE ×2 (15:40→15:47)
== END 2020-12-10 16:25 | disposition home or self-care (01) ==
LOC: ERS 13:50
DX: M25.561 Pain in right knee (principal); R51.9 Headache, unspecified; I10 Essential (primary) hypertension; W19.XXXA Unspecified fall, initial encounter
CPT/HCPCS: 70450; 80053; 80306; 80307; 81003; 81015; 81025; 85025; 93005; 96365; 96366; 96375; J1200; J1630; J1885; J2765

== ENCOUNTER 2021-02-17 17:10 | Emergency (ER) | payer SELFPAY ==
[2021-02-17 18:03] LABS: Bacteria/HPF None Seen HPF (None Seen); Bilirubin Negative (Negative); Blood, Urine Negative (Negative); Clarity Clear (Clear); Glucose, Urine (Dipstick) Normal (Negative); Ketone, Urine Negative (Negative); Leukocyte 250 Leu/uL (Negative); Nitrite Negative (Negative); Protein, Urine (Dipstick) Negative (Neg-Trace); RBC/HPF 0-3 HPF (0-3); Specific Gravity, Urine 1.026 (1.002-1.036); Urobilinogen Normal mg/dL (Less than 2)
[2021-02-17 18:04] LABS: Pregnancy Test - Urine (BHCG) Negative (Negative); Pregu Control Background? CLEAR/WHITE (CLR/WHITE); Pregu Control Bar Appear? YES (CONTROL BAR); Specific Gravity 1.026 (1.002-1.036)
[2021-02-17] MEDS ORDERED: cefTRIAXone\\ROCEPHIN 500 MG VIAL ONE (18:31)
[2021-02-17] MEDS ORDERED: Lidocaine 1% PF 5 ML VIAL ONE (18:32)
== END 2021-02-17 18:58 | disposition home or self-care (01) ==
LOC: ERS 17:10
DX: A64 Unspecified sexually transmitted disease (principal); D50.9 Iron deficiency anemia, unspecified; I10 Essential (primary) hypertension; Z79.899 Other long term (current) drug therapy
CPT/HCPCS: 81003; 81015; 81025; 87086; 96372; 99283; J0696

== ENCOUNTER 2021-07-30 13:14 | Emergency (ER) | payer SELFPAY ==
[2021-07-31 20:21] LABS: Chlamydia by PCR Not Detected (NotDetected); GC by PCR Not Detected (NotDetected)
== END 2021-07-30 16:59 | disposition home or self-care (01) ==
LOC: ERS 13:14
DX: N89.8 Other specified noninflammatory disorders of vagina (principal); F17.210 Nicotine dependence, cigarettes, uncomplicated; Z20.2 Contact with and (suspected) exposure to infections with a predominantly sexual mode of transmission
CPT/HCPCS: 87480; 87491; 87510; 87591; 87660; 99283

== ENCOUNTER 2021-08-01 11:25 | Emergency (ER) | payer SELFPAY ==
[2021-08-01 12:15] LABS: Bacteria/HPF 2+ HPF (None Seen); Bilirubin Negative (Negative); Blood, Urine Negative (Negative); Clarity Turbid (Clear); Glucose, Urine (Dipstick) Normal (Negative); Ketone, Urine Negative (Negative); Leukocyte 250 Leu/uL (Negative); Nitrite Negative (Negative); Protein, Urine (Dipstick) 20 mg/dL (Neg-Trace); Specific Gravity, Urine 1.034 (1.002-1.036); Squamous Epithelial 21-50 HPF (0-3); Urobilinogen Normal mg/dL (Less than 2); pH, Urine 5.5 (5.0-9.0)
[2021-08-01] MEDS ORDERED: cefTRIAXone\\ROCEPHIN 500 MG VIAL ONE (13:10)
[2021-08-01] MEDS ORDERED: Lidocaine 1% PF 5 ML VIAL ONE (13:11)
[2021-08-02 15:41] LABS: SARS-CoV-2 PCR by NAA Not Detected (NotDetected)
[2021-08-02 21:30] LABS: Chlam.trachomatis by PCR,Urine Not Detected (NotDetected)
== END 2021-08-01 13:20 | disposition home or self-care (01) ==
LOC: ERS 11:25
DX: A74.9 Chlamydial infection, unspecified (principal); F17.210 Nicotine dependence, cigarettes, uncomplicated; Z20.822 Contact with and (suspected) exposure to COVID-19
CPT/HCPCS: 81003; 81015; 87077; 87086; 87186; 87491; 87591; 96372; 99283; J0696; U0003; U0005

== ENCOUNTER 2021-08-16 18:40 | Emergency (ER) | payer MEDICAID, SELFPAY ==
[2021-08-16] MEDS ORDERED: Morphine 4 MG/ML VIAL ONE (19:11)
[2021-08-16] MEDS ORDERED: Ketorolac Tromethamine 30 MG/ML VIAL ONE (19:12)
[2021-08-16] MEDS ORDERED: Ondansetron PF 4 MG/2 ML Vial ONE (19:12)
[2021-08-16 19:41] LABS: #Lymphocytes 2.1 thou/uL (1.20-3.40); #Neutrophils 9.4 thou/uL (1.40-6.50); %Basophils 0.2 % (0.0-1.0); %Eosinophils 0.3 % (0.0-10.0); %Lymphocytes 16.7 % (21.0-51.0); %Monocytes 8.3 % (0.0-10.0); %Neutrophils 74.4 % (42.0-75.0); Hemoglobin 15.1 g/dL (12.0-16.0); Mean Corpuscular HGB CONC 34.8 g/dL (32.0-36.0); Mean Corpuscular Hemoglobin 30.7 pg (27.0-31.0); Mean Corpuscular Volume 88.3 fL (78.0-98.0); Platelet Count 346 thou/uL (130-400); RBC Distribution Width 11.3 % (11.5-14.5); White Blood Cell (WBC) Count 12.6 thou/uL (4.8-10.8)
[2021-08-16 19:56] LABS: ALT (SGPT) 13 U/L (8-55); AST (SGOT) 15 U/L (5-34); Albumin 4.6 g/dL (3.5-5.0); Alkaline Phosphatase 73 U/L (40-110); Anion Gap 15 mmol/L (10-20); BUN (Urea Nitrogen) 14 mg/dL (7.0-18.7); Bilirubin, Total 0.6 mg/dL (0.2-1.2); Calc. Creatinine Clearance 0 mL/min (70-130); Calcium 10.1 mg/dL (7.8-10.44); Carbon Dioxide 23 mmol/L (22-29); Chloride 103 mmol/L (98-107); Globulin 3.6 g/dL (2.4-3.5); Glucose 99 mg/dL (70-105); Potassium 3.8 mmol/L (3.5-5.1); Protein, Total 8.2 g/dL (6.0-8.3); Sodium 137 mmol/L (136-145)
[2021-08-16 20:26] LABS: Bilirubin Negative (Negative); Blood, Urine Negative (Negative); Clarity Turbid (Clear); Glucose, Urine (Dipstick) Normal (Negative); Ketone, Urine 40 mg/dL (Negative); Leukocyte 500 Leu/uL (Negative); Nitrite Negative (Negative); Protein, Urine (Dipstick) 30 mg/dL (Neg-Trace); Specific Gravity, Urine 1.035 (1.002-1.036); pH, Urine 5.5 (5.0-9.0)
[2021-08-16 20:28] LABS: Pregnancy Test - Urine (BHCG) Negative (Negative); Pregu Control Background? CLEAR/WHITE (CLR/WHITE); Pregu Control Bar Appear? YES (CONTROL BAR); Specific Gravity 1.035 (1.002-1.036)
[2021-08-16 20:33] LABS: RBC/HPF 0-3 HPF (0-3)
[2021-08-16 20:34] LABS: Bacteria/HPF None Seen HPF (None Seen)
[2021-08-16] MEDS ORDERED: diphenhydrAMINE 12.5 MG/5 ML UDCUP ONE (21:28)
== END 2021-08-16 21:37 | disposition home or self-care (01) ==
LOC: ERS 18:40
DX: N10 Acute pyelonephritis (principal); F17.210 Nicotine dependence, cigarettes, uncomplicated
CPT/HCPCS: 74177; 80053; 81003; 81015; 81025; 85025; 87480; 87491; 87510; 87591; 87660; 96374; 96375; J1885; J2270; J2405; Q0163; Q9967

== ENCOUNTER 2021-09-06 05:48 | Emergency (ER) | payer SELFPAY ==
[2021-09-06 22:30] LABS: SARS-CoV-2 PCR by NAA DETECTED (NotDetected)
== END 2021-09-06 06:33 | disposition home or self-care (01) ==
LOC: ERS 05:48
DX: U07.1 COVID-19 (principal); F17.210 Nicotine dependence, cigarettes, uncomplicated
CPT/HCPCS: 99284; U0003; U0005

== ENCOUNTER 2021-10-22 16:24 | Emergency (ER) | payer SELFPAY | END 2021-10-22 17:03 | disposition home or self-care (01) | LOC: ERS 16:24 | DX: Z20.822 Contact with and (suspected) exposure to COVID-19 (principal) | CPT/HCPCS: 99283 ==

== ENCOUNTER 2022-01-10 13:32 | Emergency (ER) | payer OTHER, SELFPAY ==
[2022-01-10] MEDS ORDERED: Dicyclomine 20 MG/2 ML VIAL ONE (14:12)
[2022-01-10 14:32] LABS: #Basophils 0.1 thou/uL (0.0-0.2); #Lymphocytes 1.8 thou/uL (1.20-3.40); #Monocytes 0.5 thou/uL (0.11-0.59); #Neutrophils 7.6 thou/uL (1.40-6.50); %Basophils 0.5 % (0.0-1.0); %Eosinophils 0.1 % (0.0-10.0); %Lymphocytes 18.4 % (21.0-51.0); %Monocytes 4.6 % (0.0-10.0); %Neutrophils 76.3 % (42.0-75.0); Hemoglobin 12.9 g/dL (12.0-16.0); Mean Corpuscular HGB CONC 33.3 g/dL (32.0-36.0); Mean Platelet Volume 6.9 fL (7.4-10.4); Platelet Count 304 thou/uL (130-400); RBC Distribution Width 11.9 % (11.5-14.5); White Blood Cell (WBC) Count 9.9 thou/uL (4.8-10.8)
[2022-01-10] MEDS ORDERED: diphenhydrAMINE 50 MG/ML VIAL ONE (14:32)
[2022-01-10] MEDS ORDERED: Dexameth. Sod Phosp. 10 MG/ML (CHEMO USE ONLY) ONE (14:33)
[2022-01-10 14:55] LABS: ALT (SGPT) 7 U/L (8-55); AST (SGOT) 10 U/L (5-34); Alkaline Phosphatase 54 U/L (40-110); Anion Gap 11 mmol/L (10-20); BUN (Urea Nitrogen) 10 mg/dL (7.0-18.7); Bilirubin, Total 0.5 mg/dL (0.2-1.2); Calc. Creatinine Clearance 0 mL/min (70-130); Calcium 9.2 mg/dL (7.8-10.44); Carbon Dioxide 24 mmol/L (22-29); Chloride 108 mmol/L (98-107); Globulin 3.2 g/dL (2.4-3.5); Glucose 119 mg/dL (70-105); Protein, Total 7.2 g/dL (6.0-8.3); Sodium 139 mmol/L (136-145)
== END 2022-01-10 15:26 | disposition home or self-care (01) ==
LOC: ERS 13:32
DX: R19.7 Diarrhea, unspecified (principal); R73.9 Hyperglycemia, unspecified
CPT/HCPCS: 36415; 80053; 85025; 96372; 96374; J0500; J1100; J1200

== ENCOUNTER 2022-06-28 08:16 | Emergency (ER) | payer SELFPAY ==
[2022-06-28 09:40] LABS: #Basophils 0.1 thou/uL (0.0-0.2); #Lymphocytes 2.1 thou/uL (1.20-3.40); #Monocytes 0.6 thou/uL (0.11-0.59); #Neutrophils 5.4 thou/uL (1.40-6.50); %Basophils 0.7 % (0.0-1.0); %Eosinophils 0.6 % (0.0-10.0); %Lymphocytes 25.3 % (21.0-51.0); %Neutrophils 66.5 % (42.0-75.0); Hemoglobin 14.2 g/dL (12.0-16.0); Mean Corpuscular HGB CONC 33.4 g/dL (32.0-36.0); Mean Corpuscular Hemoglobin 30.5 pg (27.0-31.0); Mean Corpuscular Volume 91.3 fl (78.0-98.0); Mean Platelet Volume 7.6 fL (7.4-10.4); Platelet Count 309 thou/uL (130-400); RBC Distribution Width 11.7 % (11.5-14.5); Red Blood Cell (RBC) Count 4.66 mill/uL (4.20-5.40); White Blood Cell (WBC) Count 8.2 thou/uL (4.8-10.8)
[2022-06-28 09:54] LABS: BHCG - Serum Negative (NEGATIVE); Pregs Control Background? CLEAR/WHITE (CLR/WHITE); Pregs Control Bar Appear? YES (CONTROL BAR)
[2022-06-28 10:00] LABS: ALT (SGPT) 13 U/L (8-55); AST (SGOT) 14 U/L (5-34); Albumin 4.6 g/dL (3.5-5.0); Alkaline Phosphatase 77 U/L (40-110); Anion Gap 13 mmol/L (10-20); BUN (Urea Nitrogen) 12 mg/dL (7.0-18.7); Bilirubin, Total 0.7 mg/dL (0.2-1.2); Calc. Creatinine Clearance 0 mL/min (70-130); Calcium 9.8 mg/dL (7.8-10.44); Carbon Dioxide 24 mmol/L (22-29); Chloride 106 mmol/L (98-107); Estimated GFR 100; Globulin 3.4 g/dL (2.4-3.5); Glucose 93 mg/dL (70-105); Potassium 3.6 mmol/L (3.5-5.1); Sodium 139 mmol/L (136-145)
== END 2022-06-28 12:00 | disposition home or self-care (01) ==
LOC: ERS 08:16
DX: N93.9 Abnormal uterine and vaginal bleeding, unspecified (principal)
CPT/HCPCS: 36415; 76856; 80053; 84702; 84703; 85025; 86900; 86901; 93976; 99283

== ENCOUNTER 2022-06-30 20:53 | Emergency (ER) | payer SELFPAY ==
[2022-06-30] MEDS ORDERED: Ketorolac Tromethamine 30 MG/ML VIAL ONE (21:51)
== END 2022-06-30 22:15 | disposition home or self-care (01) ==
LOC: ERS 20:53
DX: J02.9 Acute pharyngitis, unspecified (principal)
CPT/HCPCS: 87081; 87430; 96372; 99283; J1885

== ENCOUNTER 2022-10-10 11:13 | Emergency (ER) | payer MEDICAID | END 2022-10-10 15:00 | disposition home or self-care (01) | LOC: ERS 11:13 | DX: R19.7 Diarrhea, unspecified (principal) | CPT/HCPCS: 99283 ==

== ENCOUNTER 2022-12-23 17:44 | Emergency (ER) | payer MEDICAID, SELFPAY ==
[2022-12-23] MEDS ORDERED: Lidocaine 1% PF 5 ML VIAL ONE (18:10)
== END 2022-12-23 18:52 | disposition home or self-care (01) ==
LOC: ERS 17:44
DX: L03.012 Cellulitis of left finger (principal)
CPT/HCPCS: 26010

== ENCOUNTER 2023-03-05 21:05 | Emergency (ER) | payer SELFPAY ==
[2023-03-05] MEDS ORDERED: Dexameth. Sod Phosp. 10 MG/ML (CHEMO USE ONLY) ONE (23:07)
== END 2023-03-05 23:10 | disposition home or self-care (01) ==
LOC: ERS 21:05
DX: J02.9 Acute pharyngitis, unspecified (principal)
CPT/HCPCS: 87081; 87430; 96372; 99283; J1100

== ENCOUNTER 2023-10-10 08:16 | Emergency (ER) | payer MEDICAID, SELFPAY ==
[2023-10-10 08:56] LABS: Pregnancy Test - Urine (BHCG) Negative (Negative); Pregu Control Background? CLEAR/WHITE (CLR/WHITE); Pregu Control Bar Appear? YES (CONTROL BAR)
[2023-10-10 08:57] LABS: Bacteria/HPF 2+ HPF (None Seen); Bilirubin Negative (Negative); Blood, Urine Negative (Negative); CAUTI Indications for Culture Dysuria,urgency,freq; Clarity Clear (Clear); Glucose, Urine (Dipstick) Normal (Negative); Ketone, Urine Trace mg/dL (Negative); Leukocyte 250 Leu/uL (Negative); Nitrite Negative (Negative); Protein, Urine (Dipstick) 10 mg/dL (Neg-Trace); RBC/HPF 0-3 HPF (0-3); Urobilinogen 3 mg/dL (Less than 2)
[2023-10-10 09:00] LABS: Urine Culture Reflex Yes Yes
[2023-10-10 09:05] LABS: SARS-CoV-2 NAA Rapid Test Not Detected (NotDetected)
[2023-10-10] MEDS ORDERED: Iopamidol-370 76% 500 ML MDV (1 ML CHARGE) ONE (09:13)
[2023-10-10] MEDS ORDERED: Ondansetron PF 4 MG/2 ML Vial ONE (09:57)
[2023-10-10] MEDS ORDERED: Ketorolac Tromethamine 30 MG (1 mL) VIAL ONE (09:57)
[2023-10-10] MEDS ORDERED: Ciprofloxacin Lactate D5W 400 mg (200 mL) BAG ONE (10:12)
[2023-10-10 11:01] LABS: #Monocytes 1.6 thou/uL (0.11-0.59); %Basophils 0.1 % (0.0-1.0); %Eosinophils 0.1 % (0.0-10.0); %Lymphocytes 13.7 % (21.0-51.0); %Monocytes 10.3 % (0.0-10.0); %Neutrophils 75.5 % (42.0-75.0); Hematocrit 35.3 % (36.0-47.0); Hemoglobin 12.1 g/dL (12.0-16.0); Mean Corpuscular HGB CONC 34.3 g/dL (32.0-36.0); Mean Corpuscular Volume 87.6 fl (78.0-98.0); Mean Platelet Volume 9.7 fL (7.4-10.4); Platelet Count 319 10x3/uL (130-400); RBC Distribution Width 12.1 % (11.5-14.5); Red Blood Cell (RBC) Count 4.03 mill/uL (4.20-5.40); White Blood Cell (WBC) Count 15.9 10x3/uL (4.8-10.8)
[2023-10-10 11:22] LABS: ALT (SGPT) 10 U/L (8-55); AST (SGOT) 11 U/L (5-34); Albumin 4.2 g/dL (3.5-5.0); Alkaline Phosphatase 76 U/L (40-110); Anion Gap 13 mmol/L (10-20); BUN (Urea Nitrogen) 9 mg/dL (7.0-18.7); Bilirubin, Total 0.7 mg/dL (0.2-1.2); Calc. Creatinine Clearance 0 mL/min (70-130); Calcium 9.8 mg/dL (7.8-10.44); Carbon Dioxide 24 mmol/L (22-29); Chloride 103 mmol/L (98-107); Estimated GFR 89; Globulin 3.6 g/dL (2.4-3.5); Glucose 90 mg/dL (70-105); Lipase 6 U/L (8-78); Potassium 3.7 mmol/L (3.5-5.1); Protein, Total 7.8 g/dL (6.0-8.3); Sodium 136 mmol/L (136-145)
== END 2023-10-10 13:24 | disposition home or self-care (01) ==
LOC: ERS 08:16
DX: N39.0 Urinary tract infection, site not specified (principal); D64.9 Anemia, unspecified
CPT/HCPCS: 74177; 80053; 81001; 81025; 83605; 83690; 85025; 87077; 87086; 87186; 96365; 96366; 96375; J0744; J1885; J2405; Q9967

== ENCOUNTER 2024-04-17 16:12 | Emergency (ER) | payer OTHER, MEDICAID ==
[2024-04-17 17:37] LABS: Influenza A by NAA Not Detected (NotDetected); Influenza B by NAA Not Detected (NotDetected); SARS-CoV-2 NAA Rapid Test Not Detected (NotDetected)
== END 2024-04-17 18:17 | disposition home or self-care (01) ==
LOC: ERS 16:12
DX: J06.9 Acute upper respiratory infection, unspecified (principal); B97.89 Other viral agents as the cause of diseases classified elsewhere
CPT/HCPCS: 87081; 87430; 99283

== ENCOUNTER 2024-08-16 18:26 | Emergency (ER) | payer MEDICAID, OTHER, SELFPAY | END 2024-08-16 19:55 | disposition home or self-care (01) | LOC: ERS 18:26 | DX: B34.9 Viral infection, unspecified (principal) | CPT/HCPCS: 87428; 99283 ==

== ENCOUNTER 2025-04-09 17:25 | Emergency (ER) | payer OTHER ==
[2025-04-09 17:54] LABS: #Basophils Less than 0.03 10x3/uL (0.0-0.2); #Eosinophils Less than 0.03 10x3/uL (0.0-0.7); #Monocytes 0.59 10x3/uL (0.11-0.59); #Neutrophils 5.25 10x3/uL (1.40-6.50); %Basophils 0.2 % (0.0-1.0); %Eosinophils 0.1 % (0.0-10.0); %Lymphocytes 30.9 % (21.0-51.0); %Monocytes 6.9 % (0.0-10.0); %Neutrophils 61.7 % (42.0-75.0); Hematocrit 38.6 % (36.0-47.0); Hemoglobin 13.1 g/dL (12.0-16.0); Mean Corpuscular Hemoglobin 29.9 pg (27.0-31.0); Mean Corpuscular Volume 88.1 fL (78.0-98.0); Platelet Count 277 10x3/uL (130-400); Red Blood Cell (RBC) Count 4.38 mill/uL (4.20-5.40); White Blood Cell (WBC) Count 8.52 10x3/uL (4.8-10.8)
[2025-04-09 18:14] LABS: ALT (SGPT) 10 U/L (Less than 34); AST (SGOT) 18 U/L (11-34); Albumin 4.2 g/dL (3.1-4.5); Alkaline Phosphatase 61 U/L (40-110); Anion Gap 13 mmol/L (10-20); BUN (Urea Nitrogen) 9 mg/dL (7.0-18.7); Bilirubin, Total 0.6 mg/dL (0.3-1.2); Calc. Creatinine Clearance 0 mL/min (70-130); Calcium 9.2 mg/dL (7.8-10.44); Carbon Dioxide 26 mmol/L (22-29); Chloride 105 mmol/L (98-107); Globulin 3.3 g/dL (2.4-3.5); Glucose 105 mg/dL (70-105); Potassium 3.2 mmol/L (3.5-5.1); Sodium 141 mmol/L (136-145)
[2025-04-09] MEDS ORDERED: Ondansetron PF 4 MG/2 ML Vial ONE (19:20)
[2025-04-09] MEDS ORDERED: diphenhydrAMINE 50 MG/ML VIAL ONE (19:20)
[2025-04-09] MEDS ORDERED: Ketorolac Tromethamine 30 MG (1 mL) VIAL ONE (19:20)
== END 2025-04-09 23:00 | disposition home or self-care (01) ==
LOC: ERS 17:25
DX: G43.909 Migraine, unspecified, not intractable, without status migrainosus (principal); N94.6 Dysmenorrhea, unspecified; R07.9 Chest pain, unspecified
CPT/HCPCS: 36415; 71045; 76856; 80053; 83880; 84484; 85025; 93005; 96374; 96375; J1200; J1885; J2405; J2919